=== PATIENT | female | born 1955 | race Caucasian/White ===

== ENCOUNTER 2021-03-15 09:25 | Observation (INO) | payer SELFPAY ==
[2021-03-15] VITALS (10 sets, daily range): BP systolic 171–231; BP diastolic 74–114; PULSE 65–98; RESP 16–19; TEMP 36.4–37.1; O2SAT 93–98; BMI 24.2
--- NOTE | 2021-03-15 09:54 | XR_ITS ---
WS: [id number] Portable AP upright chest, 03/15/2021 Clinical Data: altered mental status Comparison: None. Findings: No nodules, masses or effusions are seen. The heart is normal. The pulmonary vascularity is not increased. No pneumonia or pneumothorax is seen. Midline sternotomy sutures are present. Monitor leads on the chest wall. XR/XR chest 1V portable [id number] Impression: Atherosclerosis.
--- NOTE | 2021-03-15 09:54 | ECG_ITS ---
[facility] Test Date: 2021-03-15 Pat Name: Lucila Perea Department: Room: Gender: Female Check Inspector: : 1955 Requested By: Nawaf Nance Order Number: [id number] Alee MD: Brittany Bueno M.D. Measurements Intervals [place] Rate: 78 P: 72 MA: 137 QRS: 26 QRSD: 90 T: 70 QT: 397 QTc: 455 Interpretive Statements SINUS RHYTHM NONSPECIFIC ST & T-WAVE ABNORMALITY No previous ECG available for comparison Electronically Signed On 03-15-2021 16:03:27 PLATINUM AND PALLADIUM KETTLE TENDER by Brittany Bueno M.D. [email or web address]
--- NOTE | 2021-03-15 09:54 | CT_ITS ---
WS: [id number] CT HEAD TECHNIQUE: Noncontrast CT of the head obtained from the skullbase to the vertex. CLINICAL INFORMATION: Symptoms of Stroke COMPARISON: None. DLP: 788.[address] scans at [facility] use at least one of these dose optimization techniques: automated e xposure control; mA and/or kV adjustment per patient size (includes targeted exams where dose is matc hed to clinical indication); or iterative reconstruction. FINDINGS: No evidence of intracranial hemorrhage. Ventricular system and basal cisterns are patent. Mild small vessel changes with moderate parenchymal volume loss. No extra-axial fluid collections. Wedge-shaped area of low-attenuation change in the left parietal white matter extending to the cortex suspicious for subacute ischemia. Small amount of low-attenuation left periventricular frontal white matter likely chronic ischemia. Tiny chronic lacunar infarct left internal capsule. Paranasal sinuses and mastoid air cells are well aerated. .Normal visualized soft tissues. CT/CT head wo con* [id number] IMPRESSION: 1. No evidence of intracranial hemorrhage 2. Area of wedge-shaped low-attenuation change suspicious for subacute ischemi a in the left parietal lobe near the vertex. This can be followed up with MRI i f indicated. 3. Additional small area of low-attenuation change in the left frontal white m atter likely chronic. 4. Mild small vessel changes. Moderate parenchymal volume loss. Notified Nawaf Nance at 03/15/2021 11:23 AM.
--- NOTE | 2021-03-15 09:54 | CT_ITS ---
WS: [id number] CTA HEAD AND NECK TECHNIQUE: Contrast enhanced CTA of the head and neck with coronal and sagittal reformatted images an d maximum intensity projection (MIP) images. NASCET criteria utilized. CLINICAL INFORMATION: symptoms of stroke COMPARISON: None. DLP: 2324.[address] scans at [facility] use at least one of these dose optimization techniques: automated e xposure control; mA and/or kV adjustment per patient size (includes targeted exams where dose is matc hed to clinical indication); or iterative reconstruction. FINDINGS: RIGHT: Right common carotid artery is patent. Minimal calcified atheromatous plaque right carotid bul b. No significant right ICA stenosis. ICA is patent to the skull base. LEFT: Occlusion of the left common carotid artery just distal to the origin. Left common carotid lila ry is occluded to the carotid bulb. Carotid reconstitutes at the carotid bulb. Moderate atheromatous plaque left carotid bulb with stenosis measuring approximately 50%. Left ICA remains patent to the sk ull base. INTRACRANIAL CTA: Both ICAs are patent at the skull base. Normal vascularity to the CHET and MCA territories bilaterally . Right dominant vertebral artery. Smaller but patent left vertebral artery. Basilar artery is patent. Dominant anterior circulation. Persistent bilateral insurance verification specialist. Mild intracranial atheromatous disease. No evidence of flow-limiting intracranial stenosis. Suspected subacute ischemia left parietal white matter. Expected decreased intraparenchymal flow in t his area. CT/CT angio headneck* [id number] IMPRESSION: 1. Left common carotid artery is occluded just distal to the origin. This cedric nstitutes at the carotid bulb and left ICA remains patent to the skull base. 50 % left proximal ICA stenosis. 2. No significant right ICA stenosis. 3. Right dominant vertebral artery. Both vertebral arteries are patent. 4. Diminutive basilar artery with dominant anterior circulation. Persistent bi lateral insurance verification specialist. 5. No evidence of flow-limiting intracranial stenosis. 6. Low-attenuation change the left parietal white matter suspicious for subacu te ischemia as previously discussed. Notified Nawaf Nance at 03/15/2021 11:57 AM.
[2021-03-15] MEDS: labetalol 5 mg/mL SDV 20mL 10 MG IV (10:15)
[2021-03-15 10:19] LABS: Basophils # 0.1 10^3/uL (0.0-0.1); Basophils % 0.7 %; Eosinophils # 0.2 10^3/uL (0.0-0.8); Eosinophils % 2.6 %; Hematocrit 51.2 % (37.0-47.0); Hemoglobin 18.4 g/dL (11.5-15.3); Lymphocytes # 1.7 10^3/uL (0.8-4.8); Lymphocytes % 19.3 %; Mean Corpuscular HGB Conc 35.9 g/dL (30.0-36.0); Mean Corpuscular Hemoglobin 29.8 pg (28.0-34.0); Mean Platelet Volume 10.4 fL (7.4-10.4); Monocytes # 0.6 10^3/uL (0.2-0.9); Neutrophils # 6.18 10^3/uL (1.8-7.7); Neutrophils % 70.1 %; Nucleated Red Blood Cells % 0 %; Platelet Count 380 10^3/cmm (130-400); Red Blood Count 6.17 10^6/uL (4.1-5.3); Red Cell Distribution Width 12.2 % (12.1-15.1); White Blood Count 8.8 10^3/uL (4.0-10.0)
[2021-03-15 10:24] LABS: Urine Appearance Clear (CLEAR); Urine Color Straw (Yellow); pH Urine 5 (5-7)
[2021-03-15 10:25] LABS: Blood Urine Neg (Negative); Glucose Urine UA 4+ (Normal); Ketones Urine Negative (Negative); Nitrate Urine Negative (Negative); Protein Urine Neg (Negative)
[2021-03-15 10:26] LABS: Bilirubin Urine Neg (Negative); Leukocyte Esterase Urine Trace (Negative); Urobilinogen Urine Norm (Negative)
[2021-03-15 10:27] LABS: Add Urine Microscopic? YES
--- NOTE | 2021-03-15 10:30 | PC.PHAR ---
pt states she use to takes insulin and bp meds pt states she hasnt taken them in years and is unsure of the names of what she took pt states she doesnt remember the name of the pharmacy she use to fill at in [place]-pt states she has only been taking ibu-
[2021-03-15 10:41] LABS: Bacteria Urine 2+ /hpf; RBC Urine 0-4 /hpf (0-2); Squamous Epithelial Cell Urine 0-4 /hpf (0-5)
[2021-03-15 10:43] LABS: Add Urine Culture? Yes
[2021-03-15 10:49] LABS: Glucose Point of Care 356 mg/dL (70-110)
[2021-03-15 10:49] LABS: INR 0.92 (0.8-1.2)
[2021-03-15 10:50] LABS: Partial Thromboplastin Time 21.2 SECONDS (23.9-36.7)
--- NOTE | 2021-03-15 10:50 | W.ED.AMS ---
HPI - Altered Mental Status General: Chief Complaint: Altered Mental Status Stated Complaint: SOB,RECENT MEMORY LOSS,R LEG LAGGING Time Seen by Provider: 03/15/21 09:40 Source: patient, family and old records reviewed History of Present Illness: HPI narrative: 65-year-old female presents to emergency department with family chief complaint of altered mental status is been progressively worse over last 3 weeks which he is having some aphasia as well as right-sided weakness. Patient apparently has been off of her medications for multiple issues the last 5 years including high blood pressure. Family reported she they have attempted to get the patient to come in for several days in which finally they were allowed to bring her in the patient does have difficulty with word finding with there is concerns of underlying stroke MD complaint: altered mental status and confusion Timing confirmed by: family member Severity: moderate Associated symptoms: Deny depression Review of Systems General: Reports: 10 or more systems reviewed and unremarkable except in HPI and below Const: Denies: fever(s), chills, fatigue or malaise Eyes: Denies: change in vision or blurry vision Card: Denies: chest pain or palpitations Resp: Denies: dyspnea or productive cough GI: Denies: abdominal pain, nausea or vomiting : Denies: flank pain Musc: Denies: extremity pain or extremity swelling Skin/Breast: Denies: rash or pruritus Neuro: Reports: headache(s), sensory changes, lack of coordination, difficulty walking and frequent falls Psych: Denies: anxiety or depression Madi/Lymph: Denies: easy bleeding All/Imm: Denies: urticaria, throat swelling or facial swelling Physical Exam Narrative: EXAM NARRATIVE: Patient appears to have a focal neuro deficit suggestive of stroke especially on the right side of the body with an obvious Warnicke's aphasia present at present Const: COMMON NORMALS: no acute distress, healthy appearing and alert (Alert oriented x2) HENMT: COMMON NORMALS: normocephalic and atraumatic HEAD & SCALP: normocephalic and atraumatic Eye: COMMON NORMALS: Equal, round and reactive pupils present and EOMs intact bilaterally PUPIL: Yes Equal, round and reactive pupils present Neck/C-Spine: COMMON NORMALS: full ROM, supple and no JVD Lymph: LYMPHATIC: no lymphadenopathy noted Chest: COMMONS NORMALS: normal inspection of the chest and normal palpation of entire chest wall Resp: COMMON NORMALS: normal respiratory effort, No retractions and clear to auscultation bilaterally EFFORT & INSPECTION: Yes able to speak in complete sentences and Yes symmetric chest movement AUSCULTATION: clear to auscultation bilaterally Cardio: COMMON NORMALS: no JVD, regular rate and regular rhythm RATE: regular rate RHYTHM: regular rhythm GI: COMMON NORMALS: Normal to inspection, nondistended, normoactive bowel sounds present, Soft to palpation and non-tender INSPECTION: Yes normal to inspection PALPATION: Yes Soft to palpation : COMMON NORMALS: Yes no CVA tenderness BLADDER/KIDNEY EXAM: Yes no CVA tenderness Back/Pelvis: COMMON NORMALS: no CVA tenderness Extremity: COMMON NORMALS: normal to inspection and full ROM Neuro: RADHA COMA SCALE: other (Patient is obvious focal neuro deficits noted obvious right-sided weakness with ataxia present obvious Warnicke's aphasia noted) SENSORIUM/ORIENTATION: Yes alert (Alert oriented x2) Psych: COMMON NORMALS: mental status grossly normal, Normal thought process present, cooperative and normal affect THOUGHT PROCESS: Normal thought process present Skin: COMMON NORMALS: no rashes or lesions noted GENERAL SKIN EXAM: no rashes or lesions noted Course ED course: Underlying concern of stroke versus hypertensive cephalopathy due to patient's current deficits that are present we will continue to follow patient was provided with a dose of labetalol for her blood pressure control we will continue to follow if needs for admission or transfer Vital Signs: Vital signs: Vital Signs Temperature 98.3 F 03/15/21 09:33 Pulse Rate 65 03/15/21 10:51 Respiratory Rate 16 03/15/21 10:51 Blood Pressure 181/82 03/15/21 10:51 Pulse Oximetry 94 03/15/21 10:51 MDM - Altered Mental Status MDM Narrative: Medical decision making narrative: Patient was found to have a subacute stroke mostly noted at the parietal and frontal areas with no hematoma no to be large for radiology advised the patient family in regards to this which are agreeable she would like to be admitted overnight for further assessment and management spoke to Dr. Beyer that has agreed to accept the patient to medical surgical floor. Differential Diagnosis: Differential diagnosis altered mental status: Likely altered mental status and delirium Lab Data: Attestation: I reviewed the patient's lab results. Labs: Lab Results 03/15/21 03/15/21 03/15/21 09:47 09:47 10:10 WBC 8.8 10^3/uL 10^3/ uL (4.0-10.0) RBC 6.17 10^6/uL H 10 ^6/uL (4.1-5.3) Hgb 18.4 g/dL H g/dL (11.5-15.3) Hct 51.2 % H % (37.0-47.0) MCV 83.0 fl fl (81-99) MCH 29.8 pg pg (28.0-34.0) MCHC 35.9 g/dL g/dL (30.0-36.0) RDW 12.2 % % (12.1-15.1) Plt Count 380 10^3/cmm 10^3 /cmm (130-400) MPV 10.4 fL fL (7.4-10.4) Neut % (Auto) 70.1 % % Lymph % (Auto) 19.3 % % [place] % (Auto) 7.0 % % Eos % (Auto) 2.6 % % Baso % (Auto) 0.7 % % Neut # (Auto) 6.18 10^3/uL 10^3 /uL (1.8-7.7) Lymph # (Auto) 1.7 10^3/uL 10^3/ uL (0.8-4.8) [place] # (Auto) 0.6 10^3/uL 10^3/ uL (0.2-0.9) Eos # (Auto) 0.2 10^3/uL 10^3/ uL (0.0-0.8) Baso # (Auto) 0.1 10^3/uL 10^3/ uL (0.0-0.1) Nucleated RBC % (a uto) 0 % % Nucleated RBCs # 0.0 /100WBC /100W BC PT INR APTT Sodium Potassium Chloride Carbon Dioxide Anion Gap BUN Creatinine GFR Calculation Glucose POC Glucose Calculated Osmolal ity Calcium Total Bilirubin AST ALT Alkaline Phosphata se Total Protein Albumin Globulin Urine Color Straw (Yellow) Urine Appearance Clear (CLEAR) Urine pH 5 (5-7) Ur Specific Gravit y 1.000 L (1.005-1.030) Urine Protein Neg (Negative) Urine Glucose (UA) 4+ H (Normal) Urine Ketones Negative (Negative) Urine Blood Neg (Negative) Urine Nitrate Negative (Negative) Urine Bilirubin Neg (Negative) Urine Urobilinogen Norm mg/dL mg/dL (Negative) Ur Leukocyte Nona ase Trace H (Negative) Urine RBC 0-4 /hpf H /hpf (0-2) Urine WBC 10-15 /hpf H /hpf (0-5) Ur Squamous Epith Cells 0-4 /hpf H /hpf (0-5) Amorphous Sediment Not Reportable Urine Bacteria 2+ /hpf H /hpf (NONE) Urine Opiates Scre en Negative ng/mL ng /mL (Negative) Ur Barbiturates Sc reen Negative ng/mL ng /mL (Negative) Ur Phencyclidine S crn Negative ng/mL ng /mL (Negative) Ur Amphetamines Sc reen Negative ng/mL ng /mL (Negative) U Benzodiazepines Scrn Positive ng/mL H ng/mL (Negative) Urine Cocaine Scre en Negative ng/mL ng /mL (Negative) U Marijuana (THC) Screen Negative ng/mL ng /mL (Negative) Ethyl Alcohol 03/15/21 03/15/21 03/15/21 10:10 10:10 10:46 WBC RBC Hgb Hct MCV MCH MCHC RDW Plt Count MPV Neut % (Auto) Lymph % (Auto) [place] % (Auto) Eos % (Auto) Baso % (Auto) Neut # (Auto) Lymph # (Auto) [place] # (Auto) Eos # (Auto) Baso # (Auto) Nucleated RBC % (a uto) Nucleated RBCs # PT 12.70 SECONDS SEC ONDS (12.1-14.9) INR 0.92 (0.8-1.2) APTT 21.2 SECONDS L SE CONDS (23.9-36.7) Sodium 134 mmol/L L mmol /L (136-145) Potassium 4.4 mmol/L mmol/L (3.5-5.1) Chloride 97 mmol/L L mmol/ L (98-107) Carbon Dioxide 23 mmol/L mmol/L (22-29) Anion Gap 18.4 (5-19) BUN 9 mg/dL mg/dL (8-23) Creatinine 0.6 mg/dL mg/dL (0.5-0.9) GFR Calculation 101.0 mL/min mL/m in (90-130) Glucose 363 mg/dL H mg/dL (65-115) POC Glucose 356 mg/dL H mg/dL (70-110) Calculated Osmolal ity 291 mOsm/kg mOsm/ kg (285-295) Calcium 8.9 mg/dL mg/dL (8.5-10.5) Total Bilirubin 0.3 mg/dL mg/dL (0.15-1.2) AST 12 U/L U/L (0-32) ALT 15 U/L U/L (0-33) Alkaline Phosphata se 83 IU/L IU/L (35-105) Total Protein 7.4 g/dL g/dL (6.6-8.7) Albumin 4.5 g/dL g/dL (3.5-5.2) Globulin 2.9 g/dL g/dL (1.3-4.6) Urine Color Urine Appearance Urine pH Ur Specific Gravit y Urine Protein Urine Glucose (UA) Urine Ketones Urine Blood Urine Nitrate Urine Bilirubin Urine Urobilinogen Ur Leukocyte Nona ase Urine RBC Urine WBC Ur Squamous Epith Cells Amorphous Sediment Urine Bacteria Urine Opiates Scre en Ur Barbiturates Sc reen Ur Phencyclidine S crn Ur Amphetamines Sc reen U Benzodiazepines Scrn Urine Cocaine Scre en U Marijuana (THC) Screen Ethyl Alcohol < 10 mg/dL mg/dL (0-10) Discharge Plan Discharge Patient Disposition: Admitted As Inpatient Clinical Impression: Stroke Condition: Stable Coding Level of Care Code ED Saloonkeeper for Vignesh Fwgianni Exam Comprehensive
[2021-03-15 10:57] LABS: Alanine Aminotransferase 15 U/L (0-33); Albumin Level 4.5 g/dL (3.5-5.2); Alkaline Phosphatase 83 IU/L (35-105); Anion Gap 18.4 (5-19); Aspartate Amino Transferase 12 U/L (0-32); Blood Urea Nitrogen 9 mg/dL (8-23); Calcium 8.9 mg/dL (8.5-10.5); Carbon Dioxide 23 mmol/L (22-29); Chloride 97 mmol/L (98-107); Globulin 2.9 g/dL (1.3-4.6); Glucose 363 mg/dL (65-115); Osmolality Calculated 291 mOsm/kg (285-295); Potassium 4.4 mmol/L (3.5-5.1); Sodium 134 mmol/L (136-145); Total Bilirubin 0.3 mg/dL (0.15-1.2); Total Protein 7.4 g/dL (6.6-8.7)
[2021-03-15 11:00] LABS: Alcohol Level < 10 mg/dL (0-10)
[2021-03-15] MEDS: iohexol 350 mg/mL 100 mL Btl IV (11:12)
[2021-03-15 11:57] LABS: Amphetamines Screen Urine Negative (Negative); Barbiturates Screen Urine Negative (Negative); Benzodiazepines Screen Urine Positive (Negative); Cocaine Screen Urine Negative (Negative); Opiate Screen Urine Negative (Negative); PCP Screen Urine Negative (Negative); THC Screen Urine Negative (Negative)
--- NOTE | 2021-03-15 12:59 | W.ED.AMS ---
HPI - Altered Mental Status General: Chief Complaint: Altered Mental Status Stated Complaint: SOB,RECENT MEMORY LOSS,R LEG LAGGING Time Seen by Provider: 03/15/21 09:40 Source: patient, family and old records reviewed History of Present Illness: HPI narrative: This is a duplicate chart please disregard and delete Severity: moderate PFSH ED PFSH: Medical History (Updated 03/15/21 @ 14:25 by Javy Beyer MD) COPD (chronic obstructive pulmonary disease) Coronary artery disease Diabetes mellitus type 2 in nonobese Hypertension Tobacco dependency Surgical History (Updated 03/15/21 @ 14:16 by Javy Beyer MD) History of coronary artery bypass graft Family History (Updated 03/15/21 @ 14:16 by Javy Beyer MD) Other CAD (coronary artery disease) Diabetes Social History (Updated 03/15/21 @ 14:16 by Javy Beyer MD) Smoking and tobacco status: current every day smoker Alcohol intake: current Alcohol intake frequency: 0-2 Drinks per Day Course Vital Signs: Vital signs: Vital Signs Temperature 98.3 F 03/15/21 09:33 Pulse Rate 67 03/15/21 14:50 Respiratory Rate 16 03/15/21 14:50 Blood Pressure 179/85 03/15/21 15:30 Pulse Oximetry 98 03/15/21 15:00 MDM - Altered Mental Status Lab Data: Labs: Lab Results 03/15/21 03/15/21 03/15/21 09:47 09:47 10:10 WBC 8.8 10^3/uL 10^3/ uL (4.0-10.0) RBC 6.17 10^6/uL H 10 ^6/uL (4.1-5.3) Hgb 18.4 g/dL H g/dL (11.5-15.3) Hct 51.2 % H % (37.0-47.0) MCV 83.0 fl fl (81-99) MCH 29.8 pg pg (28.0-34.0) MCHC 35.9 g/dL g/dL (30.0-36.0) RDW 12.2 % % (12.1-15.1) Plt Count 380 10^3/cmm 10^3 /cmm (130-400) MPV 10.4 fL fL (7.4-10.4) Neut % (Auto) 70.1 % % Lymph % (Auto) 19.3 % % [place] % (Auto) 7.0 % % Eos % (Auto) 2.6 % % Baso % (Auto) 0.7 % % Neut # (Auto) 6.18 10^3/uL 10^3 /uL (1.8-7.7) Lymph # (Auto) 1.7 10^3/uL 10^3/ uL (0.8-4.8) [place] # (Auto) 0.6 10^3/uL 10^3/ uL (0.2-0.9) Eos # (Auto) 0.2 10^3/uL 10^3/ uL (0.0-0.8) Baso # (Auto) 0.1 10^3/uL 10^3/ uL (0.0-0.1) Nucleated RBC % (a uto) 0 % % Nucleated RBCs # 0.0 /100WBC /100W BC PT INR APTT Sodium Potassium Chloride Carbon Dioxide Anion Gap BUN Creatinine GFR Calculation Glucose POC Glucose Estimat Average Gl ucose Hemoglobin A1c Calculated Osmolal ity Calcium Total Bilirubin AST ALT Alkaline Phosphata se Total Protein Albumin Globulin TSH Urine Color Straw (Yellow) Urine Appearance Clear (CLEAR) Urine pH 5 (5-7) Ur Specific Gravit y 1.000 L (1.005-1.030) Urine Protein Neg (Negative) Urine Glucose (UA) 4+ H (Normal) Urine Ketones Negative (Negative) Urine Blood Neg (Negative) Urine Nitrate Negative (Negative) Urine Bilirubin Neg (Negative) Urine Urobilinogen Norm mg/dL mg/dL (Negative) Ur Leukocyte Nona ase Trace H (Negative) Urine RBC 0-4 /hpf H /hpf (0-2) Urine WBC 10-15 /hpf H /hpf (0-5) Ur Squamous Epith Cells 0-4 /hpf H /hpf (0-5) Amorphous Sediment Not Reportable Urine Bacteria 2+ /hpf H /hpf (NONE) Urine Opiates Scre en Negative ng/mL ng /mL (Negative) Ur Barbiturates Sc reen Negative ng/mL ng /mL (Negative) Ur Phencyclidine S crn Negative ng/mL ng /mL (Negative) Ur Amphetamines Sc reen Negative ng/mL ng /mL (Negative) U Benzodiazepines Scrn Positive ng/mL H ng/mL (Negative) Urine Cocaine Scre en Negative ng/mL ng /mL (Negative) U Marijuana (THC) Screen Negative ng/mL ng /mL (Negative) Ethyl Alcohol 03/15/21 03/15/21 03/15/21 10:10 10:10 10:10 WBC RBC Hgb Hct MCV MCH MCHC RDW Plt Count MPV Neut % (Auto) Lymph % (Auto) [place] % (Auto) Eos % (Auto) Baso % (Auto) Neut # (Auto) Lymph # (Auto) [place] # (Auto) Eos # (Auto) Baso # (Auto) Nucleated RBC % (a uto) Nucleated RBCs # PT 12.70 SECONDS SEC ONDS (12.1-14.9) INR 0.92 (0.8-1.2) APTT 21.2 SECONDS L SE CONDS (23.9-36.7) Sodium 134 mmol/L L mmol /L (136-145) Potassium 4.4 mmol/L mmol/L (3.5-5.1) Chloride 97 mmol/L L mmol/ L (98-107) Carbon Dioxide 23 mmol/L mmol/L (22-29) Anion Gap 18.4 (5-19) BUN 9 mg/dL mg/dL (8-23) Creatinine 0.6 mg/dL mg/dL (0.5-0.9) GFR Calculation 101.0 mL/min mL/m in (90-130) Glucose 363 mg/dL H mg/dL (65-115) POC Glucose Estimat Average Gl ucose Hemoglobin A1c Calculated Osmolal ity 291 mOsm/kg mOsm/ kg (285-295) Calcium 8.9 mg/dL mg/dL (8.5-10.5) Total Bilirubin 0.3 mg/dL mg/dL (0.15-1.2) AST 12 U/L U/L (0-32) ALT 15 U/L U/L (0-33) Alkaline Phosphata se 83 IU/L IU/L (35-105) Total Protein 7.4 g/dL g/dL (6.6-8.7) Albumin 4.5 g/dL g/dL (3.5-5.2) Globulin 2.9 g/dL g/dL (1.3-4.6) TSH 1.07 uIU/mL uIU/m L (0.27-4.20) Urine Color Urine Appearance Urine pH Ur Specific Gravit y Urine Protein Urine Glucose (UA) Urine Ketones Urine Blood Urine Nitrate Urine Bilirubin Urine Urobilinogen Ur Leukocyte Nona ase Urine RBC Urine WBC Ur Squamous Epith Cells Amorphous Sediment Urine Bacteria Urine Opiates Scre en Ur Barbiturates Sc reen Ur Phencyclidine S crn Ur Amphetamines Sc reen U Benzodiazepines Scrn Urine Cocaine Scre en U Marijuana (THC) Screen Ethyl Alcohol < 10 mg/dL mg/dL (0-10) 03/15/21 03/15/21 10:10 10:46 WBC RBC Hgb Hct MCV MCH MCHC RDW Plt Count MPV Neut % (Auto) Lymph % (Auto) [place] % (Auto) Eos % (Auto) Baso % (Auto) Neut # (Auto) Lymph # (Auto) [place] # (Auto) Eos # (Auto) Baso # (Auto) Nucleated RBC % (a uto) Nucleated RBCs # PT INR APTT Sodium Potassium Chloride Carbon Dioxide Anion Gap BUN Creatinine GFR Calculation Glucose POC Glucose 356 mg/dL H mg/dL (70-110) Estimat Average Gl ucose 286 Hemoglobin A1c 11.6 % H % (4.0-6.0) Calculated Osmolal ity Calcium Total Bilirubin AST ALT Alkaline Phosphata se Total Protein Albumin Globulin TSH Urine Color Urine Appearance Urine pH Ur Specific Gravit y Urine Protein Urine Glucose (UA) Urine Ketones Urine Blood Urine Nitrate Urine Bilirubin Urine Urobilinogen Ur Leukocyte Nona ase Urine RBC Urine WBC Ur Squamous Epith Cells Amorphous Sediment Urine Bacteria Urine Opiates Scre en Ur Barbiturates Sc reen Ur Phencyclidine S crn Ur Amphetamines Sc reen U Benzodiazepines Scrn Urine Cocaine Scre en U Marijuana (THC) Screen Ethyl Alcohol Discharge Plan Discharge Patient Disposition: Admitted As Inpatient Admit Provider: Javy Beyer Clinical Impression: Stroke Condition: Stable Coding Level of Care Code ED Plastic Battery Assembler for Vignesh Toussaint
--- NOTE | 2021-03-15 14:10 | PM.HP ---
Providers/Chief Complaint Chief Complaint: SOB,RECENT MEMORY LOSS,R LEG LAGGING History of Present Illness Lucila Perea is a 65 year old female who presents to the emergency department with difficulty walking. She reports she has had difficulty for at least 2 weeks with her right leg working. Sister who she lives with is noted speech difficulty with word finding difficulty. She may have some difficulty seeing out of her left eye, has had decreased appetite, and has had a left-sided headache. Symptoms had not improved, so she has now come to the emergency department although she is not happy about being here. She denies any vomiting. She has a history of coronary disease, hypertension, diabetes for which she stopped all her medicine over 5 years ago. She reports she could not afford it. Review of Systems General: Reports: 10 or more systems reviewed and unremarkable except in HPI and below Const: Denies: fever(s) or chills Eyes: Reports: other (Decreased vision left eye) ENMT: Denies: throat pain Card: Denies: chest pain Resp: Denies: dyspnea GI: Denies: abdominal pain, nausea, vomiting or hematochezia : Denies: flank pain Musc: Denies: neck pain Skin/Breast: Denies: rash Neuro: Reports: headache(s) Psych: Denies: anxiety or depression Endo: Denies: polyuria Madi/Lymph: Denies: easy bruising All/Imm: Denies: urticaria Medications/Allergies Home Medications Medication Instructions Recorded Confirmed Last Taken Type ibuprofen [Advil] 800 mg PO Q4H PRN 03/15/21 03/15/21 Unknown History Allergies Allergy/AdvReac Type Severity Reaction Status Date / Time No Known Allergies Allergy Verified 03/15/21 10:29 PFSH Acute PFSH: Medical History (Updated 03/15/21 @ 14:25 by Javy Beyer MD) COPD (chronic obstructive pulmonary disease) Coronary artery disease Diabetes mellitus type 2 in nonobese Hypertension Tobacco dependency Surgical History (Updated 03/15/21 @ 14:16 by Javy Beyer MD) History of coronary artery bypass graft Family History (Updated 03/15/21 @ 14:16 by Javy Beyer MD) Other CAD (coronary artery disease) Diabetes Social History (Updated 03/15/21 @ 14:16 by Javy Beyer MD) Smoking and tobacco status: current every day smoker Alcohol intake: current Alcohol intake frequency: 0-2 Drinks per Day Vitals/I&O/Wt Last Vital Signs Temp 98.3 F 03/15/21 09:33 Pulse 65 03/15/21 10:51 Resp 16 03/15/21 10:51 BP 181/82 03/15/21 10:51 Pulse Ox 94 03/15/21 10:51 Weight last 48 hrs Weight 68.039 kg Physical Exam Narrative: EXAM NARRATIVE: General exam is a white female, complaining of left-sided headache, in no obvious distress HEENT: Pupils equally round. Oropharynx clear. Neck is supple no lymphadenopathy or megaly Cardiovascular regular rate and rhythm without murmur, no S3 or S4 Lungs a few expiratory wheezes. No crackles Abdomen is soft with positive bowel sounds. No obvious organomegaly exam is deferred Extremities no cyanosis clubbing or edema, cap refill brisk. Skin no rash Neuro: Some diminished vision left eye. Right-sided partial neglect is noted. Strength 3+/5+ and difficulty with dorsiflexion right foot is noted. Good strength in her right upper extremity with some neglect. No obvious facial droop. Some difficulty with word finding ability. Data : 03/15/21 10:10 03/15/21 10:10 Other data: EKG demonstrates normal sinus rhythm, normal axis, nonspecific ST-T wave changes CTA demonstrates a left carotid occlusion CT head demonstrates questionable chronic left frontal ischemic area and subacute left parietal CVA INR 0.92 LFTs, calcium normal Urinalysis 10-15 white blood cells Urine drug screen positive for benzodiazepines A&P Assessment and plan (1) Stroke: Appears to have a subacute stroke. Likely secondary to carotid occlusion. Initiate physical therapy, Occupational Therapy and speech therapy Initiate aspirin, 324 mg now. Continue aspirin daily and add Plavix 75 mg daily Add statin Lipid profile in the morning Check echocardiogram Observation currently. If she does well with physical therapy potential discharge tomorrow. Telemetry to monitor for any arrhythmia/atrial fibrillation Status: Acute (2) Headache: Likely secondary to CVA Status: Acute (3) Hypertension: Typically would allow permissive hypertension. In this instance as this appears to be a subacute CVA will initiate blood pressure medication tomorrow with goal of systolic around 160. Hydralazine if systolic greater than 180 four tonight. Status: Acute (4) UTI (urinary tract infection): Cefdinir Urine culture Status: Acute (5) Left carotid artery occlusion: Noted on CTA. Discussed with family no surgical intervention is appropriate at this time. Status: Acute (6) Coronary artery disease: Initiate aspirin, statin Consideration of addition of beta-charli with time Await echocardiogram Status: Acute (7) COPD (chronic obstructive pulmonary disease): DuoNeb as needed. No current evidence of exacerbation Status: Acute (8) Tobacco dependency: Encourage abstinence Status: Acute (9) Diabetes mellitus type 2 in nonobese: Sliding scale insulin Consider Metformin as an outpatient May need long-acting insulin Status: Acute Additional A&P Information Reports alcohol intake of around two drinks per day. Monitor for withdrawal. Thiamine. Allow natural . Lovenox for DVT prophylaxis. Pepcid for GI prophylaxis Attestations Medical Necessity Statement*: Less than two midnight stay for evaluation and treatment of subacute CVA Time Spent in Patient Care: Greater than 35 minutes Coding Level of Care Code Acute Logistics Engineer for [facility] Fwd Diagnoses Stroke I63.9 Headache R51.9 Hypertension I10 UTI (urinary tract infection) N39.0 Left carotid artery occlusion I65.22 Coronary artery disease I25.10 COPD (chronic obstructive pulmonary disease) J44.9 Tobacco dependency F17.200 Diabetes mellitus type 2 in nonobese E11.9
--- NOTE | 2021-03-15 14:20 | USCV_ITS ---
Lucila Perea Age: 65 Gender: F : 1955 Exam Date: 03/15/2021 14:58 Ordering Phys: Javy Beyer MD Technologist: ARJUN Exam Location: [facility] [place] Indication: CVA BP: 167 / 69 HR: 74 Rhythm: Sinus Technical Quality: Technically difficult study MEASUREMENTS (Male / Female) Normal Values 2D ECHO LV Diastolic Diameter PLAX 3.7 cm 4.2 - 5.9 / 3.9 - 5.3 cm LV Systolic Diameter PLAX 2.7 cm IVS Diastolic Thickness 1.1 cm 0.6 - 1.0 / 0.6 - 0.9 cm IVS Systolic Thickness 1.3 cm LVPW Diastolic Thickness 1.2 cm 0.6 - 1.0 / 0.6 - 0.9 cm LVPW Systolic Thickness 2.0 cm LVOT Diameter 2.0 cm LV Ejection Fraction 2D Teich 54.0 % LV Ejection Fraction MOD 2C 57.1 % LV Ejection Fraction 2C AL 56.8 % LA Diameter 2.7 cm LA Width 3.5 cm LA Height 3.9 cm RA Width 3.2 cm RA Height 4.3 cm Aorta at Sinotubular Diameter 2.1 cm M-MODE Aortic Annulus Diameter 2.3 cm LA Ao Ratio MM 1.4 MV E Point Septal Separation 0.4 cm DOPPLER AV Peak Velocity 120.0 cm/s LVOT Peak Velocity 98.0 cm/s AV Area Cont Eq vti 2.6 cm squared AV Area Cont Eq pk 2.6 cm squared MV Area PHT 5.0 cm squared Mitral E to A Ratio 0.9 MV E' Velocity 46.5 cm/s Mitral E to MV E' Ratio 12.6 Mitral E to LV E' Lateral Ratio 13.0 Mitral E to LV E' Septal Ratio 12.4 TR Peak Velocity 254.0 cm/s TR Peak Gradient 25.8 mmHg TV Peak E Velocity 50.0 cm/s Right Atrial Pressure 3.0 mmHg Pulmonary Artery Systolic Pressu 28.8 mmHg PV Peak Velocity 119.0 cm/s RV Acceleration Time 0.1 s RV Ejection Time 0.3 s RV AcT/ET 0.3 FINDINGS Left Ventricle Technically limited quality study because of poor ultrasonic windows. Normal left ventricular size. LV systolic function is normal with EF of 60-65%. No regional wall motion abnormalities. Right Ventricle Grossly normal in size Right Atrium The right atrium is normal in size. Left Atrium The left atrium is normal in size. Mitral Valve Grossly normal without significant stenosis or prolapse. There is mild mitral regurgitation. Aortic Valve Not well visualzied. No significant stenosis. There is no aortic regurgitation. Tricuspid Valve Not well-visualized Pulmonic Valve Not well-visualized Pericardium Normal pericardium without effusion. Aorta Normal ascending aorta dimension. CONCLUSIONS Limited quality echocardiogram because of poor ultrasonic windows. LV systolic function is normal with EF of 60 to 65%. Mild mitral regurgitation is seen. No comparison studies are available. Kumar Mack MD (Electronically Signed) Final Date: 15 March 2021 16:46 S
[2021-03-15 14:49] LABS: Thyroid Stimulating Hormone 1.07 uIU/mL (0.27-4.20)
[2021-03-15] MEDS: perflutren protein-a microsphr 0.22 mg/mL SDV 3 mL IV (15:37)
[2021-03-15 15:41] LABS: Estmated Average Glucose 286; Hemoglobin A1C 11.6 % (4.0-6.0)
[2021-03-15] MEDS: aspirin 81 mg Chew Tablet 324 MG PO (15:50)
--- NOTE | 2021-03-15 16:02 | PC.NURSE ---
attempted report charge nurse to call back
--- NOTE | 2021-03-15 16:18 | PC.NURSE ---
attempted report again, was told report cant be given yet.
[2021-03-15] MEDS: enoxaparin 40 mg/0.4 mL Syringe SUBCUT (18:13)
[2021-03-15] MEDS: cefdinir 300 MG CAPSULE PO (18:13)
[2021-03-15] MEDS: sodium chloride 0.9% 1,000 ML 75 ML IV (18:13)
[2021-03-15] MEDS: famotidine 20 mg Tablet PO (18:13)
[2021-03-15 18:35] LABS: Glucose Point of Care 418 mg/dL (70-110)
[2021-03-15] MEDS: insulin lispro 100 unit/1 mL SUBCUT ×2 (18:42→21:28)
[2021-03-15] MEDS: acetaminophen 325 mg Tablet 650 MG PO (20:03)
[2021-03-15] MEDS: atorvastatin 40 mg Tablet PO (20:03)
[2021-03-15 20:30] LABS: Glucose Point of Care 220 mg/dL (70-110)
[2021-03-16] VITALS: BP 136/79; PULSE 69; RESP 19; TEMP 36.8; O2SAT 95
[2021-03-16 04:00] VITALS: BP 159/94; PULSE 80; RESP 20; TEMP 36.7; O2SAT 97
[2021-03-16 05:52] LABS: Basophils # 0.1 10^3/uL (0.0-0.1); Basophils % 0.8 %; Eosinophils # 0.3 10^3/uL (0.0-0.8); Eosinophils % 3.9 %; Hematocrit 46.2 % (37.0-47.0); Hemoglobin 16.5 g/dL (11.5-15.3); Lymphocytes # 1.7 10^3/uL (0.8-4.8); Lymphocytes % 21.8 %; Mean Corpuscular HGB Conc 35.7 g/dL (30.0-36.0); Mean Corpuscular Hemoglobin 30.2 pg (28.0-34.0); Mean Corpuscular Volume 84.6 fl (81-99); Mean Platelet Volume 10.6 fL (7.4-10.4); Monocytes # 0.6 10^3/uL (0.2-0.9); Monocytes % 8.1 %; Neutrophils # 4.94 10^3/uL (1.8-7.7); Nucleated Red Blood Cells % 0 %; Platelet Count 341 10^3/cmm (130-400); Red Blood Count 5.46 10^6/uL (4.1-5.3); Red Cell Distribution Width 12.3 % (12.1-15.1); White Blood Count 7.6 10^3/uL (4.0-10.0)
[2021-03-16 06:19] LABS: Anion Gap 17.8 (5-19); Blood Urea Nitrogen 12 mg/dL (8-23); Calcium 8.5 mg/dL (8.5-10.5); Carbon Dioxide 20 mmol/L (22-29); Chloride 100 mmol/L (98-107); Glucose 214 mg/dL (65-115); Osmolality Calculated 284 mOsm/kg (285-295); Potassium 3.8 mmol/L (3.5-5.1); Sodium 134 mmol/L (136-145)
[2021-03-16 06:27] LABS: Chol HDL Ratio 6.73 mg/dL (0.0-4.40); Cholesterol 276 mg/dL (0-200); HDL Cholesterol 41 mg/dL (60-100); LDL Cholesterol Calculated 199 mg/dL (50-129); LDL HDL Ratio 4.85 RATIO (0.00-3.22); Triglycerides 182 mg/dL (0-150)
[2021-03-16 06:39] LABS: Glucose Point of Care 230 mg/dL (70-110)
[2021-03-16 07:22] VITALS: BP 174/76; PULSE 82; RESP 16; TEMP 36.9; O2SAT 95
[2021-03-16 08:32] VITALS: PULSE 75; RESP 18; O2SAT 97
--- NOTE | 2021-03-16 09:36 | PC.OT ---
OT EVALUATION ORDERS RECEIVED. PATIENT IS ABLE TO VISUALLY TRACK IN ALL PLANES. DEMONSTRATES WFL AROM OF B UE AND 4/5 B UE MX STRENGTH. IS ABLE TO OPPOSE ALL FINGERS BUT IS SLOWER WITH EYES CLOSED. REPORTS NO DIFFICULTY FEEDING SELF THIS MORNING. DECLINES ADLS AT THIS TIME SHE IS HOPING TO DISCHARGE TODAY. HANDOUT GIVEN TO [employer]OR SKILL[employer]; PATIENT VERBALIZED UNDERSTANDING. NO FURTHER SKILLED OT REQUIRED AT THIS TIME.
[2021-03-16 11:05] LABS: Glucose Point of Care 386 mg/dL (70-110)
[2021-03-16 11:15] VITALS: BP 176/90; PULSE 89; RESP 16; TEMP 36.9; O2SAT 98
--- NOTE | 2021-03-16 11:49 | PM.DCS ---
Discharge Providers Date of Admission: 03/15/21 13:00 Date of Discharge: March 16, 2021 Attending Provider at Admission: Javy Beyer MD Attending Provider at Discharge: Afua Salmeron MD Diagnoses at Discharge Discharge Diagnosis (1) Stroke: Status: Acute (2) Headache: Status: Acute (3) Hypertension: Status: Acute (4) UTI (urinary tract infection): Status: Acute (5) Left carotid artery occlusion: Status: Acute (6) Coronary artery disease: Status: Acute (7) COPD (chronic obstructive pulmonary disease): Status: Acute (8) Tobacco dependency: Status: Acute (9) Diabetes mellitus type 2 in nonobese: Status: Acute Reason for Visit Reason for Visit: SOB,RECENT MEMORY LOSS,R LEG LAGGING Hospital Course Hospital Course History of Present Illness by Dr. Beyer Lucila Perea is a 65 year old female who presents to the emergency department with difficulty walking. She reports she has had difficulty for at least 2 weeks with her right leg working. Sister who she lives with is noted speech difficulty with word finding difficulty. She may have some difficulty seeing out of her left eye, has had decreased appetite, and has had a left-sided headache. Symptoms had not improved, so she has now come to the emergency department although she is not happy about being here. She denies any vomiting. She has a history of coronary disease, hypertension, diabetes for which she stopped all her medicine over 5 years ago. She reports she could not afford it. Hospital course Patient symptoms resolved, she is not struggling with word finding difficulty, did write for physical therapy, remained in sinus rhythm, LDL 199, echo shows preserved ejection fraction, CTA head and neck 50% left proximal ICA stenosis head CT consistent with low-attenuation change left parietal subacute ischemic changes. Patient will be discharged home with aspirin and Plavix 21-day regimen along atorvastatin and for her hypertension she will get metoprolol and lisinopril, patient was counseled on smoking cessation, following up with PCP.She will be discharged home with event monitor for 21 days. Sister at the bedside at the time of discharge, all the recommendations were explained and understood, all questions were answered to the satisfaction. Meds to beds arranged. Patient to discuss carotid ultrasound annual screening with her PCP, no acute intervention indicated at this time for 50% stenosis. Optimization of medication at this point and risk factor modification for her ischemic atherosclerotic CV event. Physical Exam Narrative: EXAM NARRATIVE: Patient sitting in a chair Nonfocal neuro exam No word finding difficulty Right-sided partial neglect No facial droop EOMI, PERRLA S1, S2 no murmur No audible stridor or wheezing Abdomen is soft No rash Discharge Data Data Completed and Pending: Completed Studies During Hospitalization Category Date Time Status CT angio headneck * [id number] Stat Cat Scan 03/15/21 09:[address] head wo con* [id number] Stat Cat Scan 03/15/21 09:54 Completed XR chest 1V noé ble [id number] Stat Exams 03/15/21 09:54 Completed CV. echo wo/w con trast [id number] Routin e Ultrasound 03/15/21 14:20 Completed Pending at discharge Category Date Time Status Urine Culture Sta t Lab 03/15/21 09:47 Results Labs from last 24 hours 03/16/21 03/16/21 03/16/21 10:53 06:34 04:44 WBC RBC Hgb Hct MCV MCH MCHC RDW Plt Count MPV Neut % (Auto) Lymph % (Auto) Coryell % (Auto) Eos % (Auto) Baso % (Auto) Neut # (Auto) Lymph # (Auto) Coryell # (Auto) Eos # (Auto) Baso # (Auto) Nucleated RBC % (a uto) Nucleated RBCs # Sodium Potassium Chloride Carbon Dioxide Anion Gap BUN Creatinine GFR Calculation Glucose POC Glucose 386 H 230 H Estimat Average Gl ucose Hemoglobin A1c Calculated Osmolal ity Calcium Triglycerides 182 H Cholesterol 276 H LDL Cholesterol, C alc 199 H HDL Cholesterol 41 L LDL/HDL Ratio 4.85 H Cholesterol/HDL Ra ivania 6.73 H TSH Urine Opiates Scre en Ur Barbiturates Sc reen Ur Phencyclidine S crn Ur Amphetamines Sc reen U Benzodiazepines Scrn Urine Cocaine Scre en U Marijuana (THC) Screen 03/16/21 03/16/21 03/15/21 04:44 04:44 20:27 WBC 7.6 RBC 5.46 H Hgb 16.5 H Hct 46.2 MCV 84.6 MCH 30.2 MCHC 35.7 RDW 12.3 Plt Count 341 MPV 10.6 H Neut % (Auto) 65.0 Lymph % (Auto) 21.8 Coryell % (Auto) 8.1 Eos % (Auto) 3.9 Baso % (Auto) 0.8 Neut # (Auto) 4.94 Lymph # (Auto) 1.7 Coryell # (Auto) 0.6 Eos # (Auto) 0.3 Baso # (Auto) 0.1 Nucleated RBC % (a uto) 0 Nucleated RBCs # 0.0 Sodium 134 L Potassium 3.8 Chloride 100 Carbon Dioxide 20 L Anion Gap 17.8 BUN 12 Creatinine 0.6 GFR Calculation 101.0 Glucose 214 H POC Glucose 220 H Estimat Average Gl ucose Hemoglobin A1c Calculated Osmolal ity 284 L Calcium 8.5 Triglycerides Cholesterol LDL Cholesterol, C alc HDL Cholesterol LDL/HDL Ratio Cholesterol/HDL Ra ivania TSH Urine Opiates Scre en Ur Barbiturates Sc reen Ur Phencyclidine S crn Ur Amphetamines Sc reen U Benzodiazepines Scrn Urine Cocaine Scre en U Marijuana (THC) Screen 03/15/21 03/15/21 03/15/21 18:32 10:10 10:10 WBC RBC Hgb Hct MCV MCH MCHC RDW Plt Count MPV Neut % (Auto) Lymph % (Auto) Coryell % (Auto) Eos % (Auto) Baso % (Auto) Neut # (Auto) Lymph # (Auto) Coryell # (Auto) Eos # (Auto) Baso # (Auto) Nucleated RBC % (a uto) Nucleated RBCs # Sodium Potassium Chloride Carbon Dioxide Anion Gap BUN Creatinine GFR Calculation Glucose POC Glucose 418 H Estimat Average Gl ucose 286 Hemoglobin A1c 11.6 H Calculated Osmolal ity Calcium Triglycerides Cholesterol LDL Cholesterol, C alc HDL Cholesterol LDL/HDL Ratio Cholesterol/HDL Ra ivania TSH 1.07 Urine Opiates Scre en Ur Barbiturates Sc reen Ur Phencyclidine S crn Ur Amphetamines Sc reen U Benzodiazepines Scrn Urine Cocaine Scre en U Marijuana (THC) Screen 03/15/21 09:47 WBC RBC Hgb Hct MCV MCH MCHC RDW Plt Count MPV Neut % (Auto) Lymph % (Auto) Coryell % (Auto) Eos % (Auto) Baso % (Auto) Neut # (Auto) Lymph # (Auto) Coryell # (Auto) Eos # (Auto) Baso # (Auto) Nucleated RBC % (a uto) Nucleated RBCs # Sodium Potassium Chloride Carbon Dioxide Anion Gap BUN Creatinine GFR Calculation Glucose POC Glucose Estimat Average Gl ucose Hemoglobin A1c Calculated Osmolal ity Calcium Triglycerides Cholesterol LDL Cholesterol, C alc HDL Cholesterol LDL/HDL Ratio Cholesterol/HDL Ra ivania TSH Urine Opiates Scre en Negative Ur Barbiturates Sc reen Negative Ur Phencyclidine S crn Negative Ur Amphetamines Sc reen Negative U Benzodiazepines Scrn Positive H Urine Cocaine Scre en Negative U Marijuana (THC) Screen Negative Vitals: Last Vital Signs Temp 98.5 F 03/16/21 11:15 Pulse 89 03/16/21 11:15 Resp 16 03/16/21 11:15 BP 176/90 03/16/21 11:15 Pulse Ox 98 03/16/21 11:15 Discharge Plan Discharge Patient Disposition: Home Condition: Stable Prescriptions: New atorvastatin 40 mg Tablet 40 mg PO BEDTIME Qty: 60 RF: 3 clopidogrel 75 mg Tablet 75 mg PO DAILY Qty: 21 RF: 0 famotidine 20 mg Tablet 20 mg PO BID Qty: 30 RF: 0 aspirin 325 mg Tablet,Delayed Release (Dr/Ec) 325 mg PO DAILY Qty: 60 RF: 3 cefdinir 300 mg Capsule 300 mg PO BID Qty: 7 RF: 0 lisinopril 10 mg tablet 10 mg PO DAILY Qty: 60 RF: 3 metoprolol tartrate 25 mg tablet 12.5 mg PO BID Qty: 60 RF: 3 Discontinued ibuprofen [Advil] 200 mg Tablet 800 mg PO Q4H PRN (Reason: Pain) RF: 0 Discharge Orders: Discharge Order (Routine); Ordered 03/16/21 Ordered By: Afua Salmeron Other Ambulatory Orders: [place] cardiac event monitor (Routine) Timeframe: 21 Days Facility: [facility] - Location: Cardiac Diagnostic Laboratory Ordered By: Afua Salmeron Referrals: Eros Man DO [Physician] - 7-10 days (New Patient appointment) Brittany Bueno MD [Physician] - 03/21/21 2:30 pm (Please go to the cardiology clinic on 03/21/21 at 2:30pm to have an event monitor placed. ) Discharge Diet: Cardiac Discharge Activity: Increase activity as tolerated Patient Instructions: Metoprolol (By mouth) (Lopressor, Toprol XL), Lisinopril (By mouth) (Prinivil, Zestril), Famotidine (By mouth) (Acid Controller, Acid Donor Services Team Leader, Pepcid AC, Pepcid), Aspirin (By mouth) (Darin Extra Strength, Darin Aspirin Children's,..., Atorvastatin (By mouth) (Lipitor), Clopidogrel (By mouth) (Plavix), Cefdinir (By mouth) (Omnicef), Coronary Artery Disease (DC), Opioid Safety Activity Restrictions/Additional Instructions: Aspirin and Plavix for 21 days and then you will take aspirin only with rest of the medications For your blood pressure you'll take lisinopril and Metroprolol tartrate, Please establish a PCP Quit smoking, cold turkey is the best route Maintain a blood pressure diary to show to your pcp Discharge Attestations Time Spent in Discharge Care*: less than 30 min Quality Metrics Clinical Quality Measures During this hospital stay, did patient experience: Stroke Contraindication to Antithrombotic: Antithrombotic prescribed Contraindication to Anticoagulation: Medical contraindication Contraindication to Statin: Statin prescribed Contraindication to antithrombotic day 2: Antithrombotic given Coding Level of Care Code Acute Chg FW DC note Diagnoses Stroke I63.9 Headache R51.9 Hypertension I10 UTI (urinary tract infection) N39.0 Left carotid artery occlusion I65.22 Coronary artery disease I25.10 COPD (chronic obstructive pulmonary disease) J44.9 Tobacco dependency F17.200 Diabetes mellitus type 2 in nonobese E11.9
[2021-03-16] MEDS: aspirin 325 mg EC Tablet PO (12:48)
[2021-03-16] MEDS: thiamine 100 mg Tablet PO (12:48)
[2021-03-16] MEDS: cefdinir 300 MG CAPSULE PO (12:48)
[2021-03-16] MEDS: clopidogrel 75 mg Tablet PO (12:48)
[2021-03-16] MEDS: famotidine 20 mg Tablet PO (12:48)
[2021-03-16] MEDS: insulin lispro 100 unit/1 mL SUBCUT (12:53)
--- NOTE | 2021-03-16 14:00 | PC.NURSE ---
PT HAS DONE WELL FOR ME TODAY. PT DOES NOT HAVE ANY COMPLAINTS OF PAIN. SHE DID WELL WITH PHYSICAL THERAPY THIS MORNING. SHE IS AMBULATING WELL. DISCHARGE PAPERWORK GONE OVER WITH PT. ALL QUESTIONS ANSWERED. MEDICATIONS WERE BROUGHT UP TO PT. IV REMOVED. PT TOELRATED WELL. CATHETER TIP INTACT. PT SAFELY WHEELED OUT BY THE AID.
[2021-03-16 14:02] VITALS: BP 176/90; PULSE 89; RESP 16; TEMP 36.9; O2SAT 98
--- NOTE | 2021-03-20 13:43 | PC.SOCIAL ---
pt doesn't currently have insurance. pt doesn't wish to follow up with cardiology, establish pcp or have heart monitor placed until she has coverage. pt has financial assistance paperwork and is filling it out.
== END 2021-03-16 14:02 | disposition home or self-care (01) ==
LOC: ER 12:00 → MEDSURG 03-16 07:28
PROVIDERS: Admitting Provider Internal Medicine; Emergency Provider Emergency Medicine; Visit Provider Internal Medicine
DX: I63.9 Cerebral infarction, unspecified (principal); R51.9 Headache, unspecified; I10 Essential (primary) hypertension; N39.0 Urinary tract infection, site not specified; I65.22 Occlusion and stenosis of left carotid artery; I25.10 Atherosclerotic heart disease of native coronary artery without angina pectoris; J44.9 Chronic obstructive pulmonary disease, unspecified; F17.200 Nicotine dependence, unspecified, uncomplicated; E11.9 Type 2 diabetes mellitus without complications; Z79.82 Long term (current) use of aspirin
CPT/HCPCS: 36415; 36416; 70450; 70496; 70498; 71045; 80048; 80053; 80061; 80306; 80307; 81001; 82962; 83036; 84443; 85025; 85610; 85730; 87077; 87086; 87186; 92523; 92610; 93005; 96361; 96372; 96374; 97110; 97161; 99285; C8929; G0378; J1650; J1815; J3490; J7030; Q9956; Q9967

== ENCOUNTER 2021-04-25 09:44 | Inpatient (IN) | payer MEDICAID, SELFPAY ==
[2021-04-25] VITALS (19 sets, daily range): BP systolic 170–244; BP diastolic 82–144; PULSE 78–108; RESP 15–31; TEMP 36.2–37.3; O2SAT 65–97; BMI 28.2
--- NOTE | 2021-04-25 | CT_ITS ---
WS: [id number] CT HEAD TECHNIQUE: Noncontrast CT of the head obtained from the skullbase to the vertex. CLINICAL INFORMATION: LEFT SIDED WEAKNESS / SLURRED SPEECH / STROKE ALERT COMPARISON: March 15, 2021 DLP: [address] scans at [facility] use at least one of these dose optimization techniques: automated e xposure control; mA and/or kV adjustment per patient size (includes targeted exams where dose is matc hed to clinical indication); or iterative reconstruction. FINDINGS: No evidence of intracranial hemorrhage or mass effect. Ventricular system and basal cisterns are rodríguez nt. Mild small vessel changes with moderate parenchymal volume loss. Tiny chronic lacunar infarct lef t internal capsule. Chronic appearing lacunar infarct left thalamus. No extra-axial fluid collections . No evidence of mass or mass effect. Normal mcdaniels-white differentiation. Paranasal sinuses and mastoid air cells are well aerated. .Normal visualized soft tissues. CT/CT head wo con* [id number] IMPRESSION: 1. No evidence of intracranial hemorrhage or mass effect. 2. Chronic infarct in the left parietal lobe with encephalomalacia is unchange d from previous. 3. Chronic appearing low-attenuation change in the left frontal lobe is unchan ged from previous. 4. Small 9 x 6 mm wedge-shaped low-attenuation left parasagittal occipital lo be appears new or progressed compared to previous suspicious for small area of subacute ischemia. This can be further evaluated with MRI. 5. No other significant findings. Notified Armani Ross DO at 04/25/2021 10:01 AM.
--- NOTE | 2021-04-25 10:02 | CT_ITS ---
WS: [id number] CTA HEAD AND NECK TECHNIQUE: Contrast enhanced CTA of the head and neck with coronal and sagittal reformatted images an d maximum intensity projection (MIP) images. NASCET criteria utilized. CLINICAL INFORMATION: acute CVA COMPARISON: CTA April 25, 2021 DLP: 2627.[address] scans at [facility] use at least one of these dose optimization techniques: automated e xposure control; mA and/or kV adjustment per patient size (includes targeted exams where dose is matc hed to clinical indication); or iterative reconstruction. FINDINGS: RIGHT: Right common carotid origin is patent. New eccentric stenosis with irregular ulcerated plaque with suspected focal dissection involving the right common carotid artery in the lower neck. This is new from March 15, 2021. Stenosis measuring approximately 65%. No occlusion. Right common carotid artery remains patent to the bifurcation. No significant right ICA stenosis. Right ICA is patent to t he skull base. LEFT: Left common carotid artery is occluded just distal to the origin unchanged since the prior examinatio n. Left common carotid artery remains occluded to the bifurcation. ICA reconstitutes just distal to t he bifurcation with stenosis measuring approximately 50%. Left ICA remains patent to the skull base. INTRACRANIAL CTA: Both ICAs are patent at the skull base. Normal vascularity to the CHET and MCA territories bilaterally . No evidence of intracranial flow-limiting stenosis. Tiny patent anterior communicating artery. Right dominant vertebral artery. Both vertebral arteries are patent. Left vertebral artery partially dense and PICA. Diminutive but patent basilar artery with dominant anterior circulation. Normal vascu larity to the APARTMENT COMMUNITY ASSISTANT MANAGER territory bilaterally. Persistent left APARTMENT COMMUNITY ASSISTANT MANAGER. Slightly decreased cortical flow in the area of suspected subacute parasagittal occipital infarct. Chronic decreased flow in the area of more chronic appearing left parietal infarct. This can be followed up with MRI. Paranasal sinuses and mastoid air cells are well aerated. Lung apices are well aerated. Sternotomy. CT/CT angio headneck* [id number] IMPRESSION: 1. New progressed stenosis in the right common carotid artery in the lower nec k with eccentric ulcerated irregular plaque and suspected short segment dissect ion with stenosis measuring 65%. Right common carotid artery is patent to the b ifurcation. Right ICA is patent to the skull base. 2. Left common carotid artery is occluded just distal to the origin unchanged from previous. 50% left ICA stenosis is unchanged. 3. Right dominant vertebral artery. Both vertebral arteries are patent. 4. No flow-limiting intracranial stenosis. Persistent left APARTMENT COMMUNITY ASSISTANT MANAGER. 5. Slightly decreased cortical flow to the area of suspected subacute ischemia in the left parasagittal occipital lobe. This can be followed up with MRI. 6. Stable more chronic appearing infarct in the left parietal lobe. Attempted notification Armani Ross DO at 04/25/2021 11:11 AM.
--- NOTE | 2021-04-25 10:06 | W.ED.NEUROSD ---
HPI - Neuro Symptoms/Deficit General: Chief Complaint: Neuro Symptoms/Deficit Stated Complaint: STROKE ALERT Time Seen by Provider: 04/25/21 09:55 History of Present Illness: HPI Narrative: 65-year-old female presents via EMS 1 hour 15 minutes after sudden onset of left-sided weakness dysarthria and aphasia. Patient has a known history of previous CVA and was hospitalized in early March with a CVA. She is not on any anticoagulants evidently she was on clopidogrel but is already stopped she is taking aspirin and atorvastatin. There are no other oral anticoagulants. Onset (ago): hour(s) Time: 09:55 Last Observed Normal: 08:40 Timing confirmed by: family member Location: speech, left face, left arm and left leg Severity: mild Quality: weak Relieving factors: none Exacerbating factors: none Context: sudden onset On Anticoagulants: No Associated symptoms: Reports weakness; Deny chest pain, cough, diaphoresis, fevers/chills, headache(s), anorexia, malaise, nausea, seizures, short of breath, syncope, tingling, vertigo or vomiting Treatments Prior to Arrival: none Review of Systems Const: Denies: malaise or diaphoresis ENMT: Denies: throat pain, ear or mastoid pain, nasal discharge or nasal congestion Card: Denies: chest pain or syncope Resp: Denies: dyspnea, productive cough or non-productive cough GI: Denies: nausea or vomiting : Denies: flank pain, difficulty voiding, dysuria, urinary frequency or urinary urgency Skin/Breast: Denies: rash or pruritus Neuro: Denies: headache(s) or vertigo PFS ED PFSH: Medical History (Updated 04/28/21 @ 17:09 by Armani Ross DO) COPD (chronic obstructive pulmonary disease) Coronary artery disease Diabetes mellitus type 2 in nonobese Headache Hypertension Tobacco dependency Surgical History History of coronary artery bypass graft Family History Other CAD (coronary artery disease) Diabetes Social History Smoking and tobacco status: current every day smoker Alcohol intake: current Alcohol intake frequency: 0-2 Drinks per Day NIH stroke score NIHSS: Level Of Consciousness - 1a: 1 Level Of Consciousness Questions - 1b: Both Correct Level Of Consciousness Commands - 1c: Both Correct Best Gaze - 2: Partial Gaze Palsy Visual Hernandez - 3: No Visual Loss Facial Palsy - 4: Partial Paralysis Motor Arm Right - 5: Effort Against [place] Motor Arm Left - 5: No Drift Motor Leg Right - 6: No Drift Motor Leg Left - 6: Effort Against [place] Limb Ataxia - 7: Present In Two Limbs Sensory - 8: Normal Best Language - 9: No Aphasia Dysarthia - 10: Mild/Moderate Dysarthia Extinction And Inattention - 11: 1 Score: Total Score: 12 Physical Exam Const: GENERAL APPEARANCE: cooperative and comfortable ORIENTATION/CONSCIOUSNESS: Yes awake HENMT: COMMON NORMALS: normocephalic, atraumatic, hearing grossly normal bilaterally, external ears normal, EAC's normal, TM's normal bilaterally, Normal nasal mucous membranes and turbinates present, moist oral mucous membranes and oropharynx normal HEAD & SCALP: normocephalic and atraumatic NOSE: Normal nasal mucous membranes and turbinates present EXTERNAL EAR: Yes external ears normal EXTERNAL AUDITORY CANAL: EAC's normal TYMPANIC MEMBRANE: TM's normal bilaterally Eye: COMMON NORMALS: Equal, round and reactive pupils present, EOMs intact bilaterally, conjunctivae normal and no scleral icterus CONJUNCTIVA: Yes conjunctivae normal PUPIL: Yes Equal, round and reactive pupils present Neck/C-Spine: COMMON NORMALS: full ROM, no lymphadenopathy, supple and no JVD Resp: COMMON NORMALS: normal respiratory effort, No retractions, No use of accessory muscles and clear to auscultation bilaterally AUSCULTATION: clear to auscultation bilaterally Cardio: COMMON NORMALS: no JVD, regular rate, regular rhythm and No murmurs present (Cardio) RATE: regular rate RHYTHM: regular rhythm GI: COMMON NORMALS: Soft to palpation and No hepatosplenomegaly present AUSCULTATION: Yes normoactive bowel sounds PALPATION: Yes Soft to palpation, No Tenderness to palpation present (GI), No Guarding due to palpation present (GI) and Yes No hepatosplenomegaly present Extremity: COMMON NORMALS: normal to inspection, capillary refill normal, no clubbing, cyanosis or edema, no calf tenderness and no pedal edema Skin: COMMON NORMALS: no rashes or lesions noted GENERAL SKIN EXAM: no rashes or lesions noted Course Vital Signs: Vital signs: Vital Signs Temperature 98.5 F 04/28/21 15:14 Pulse Rate 73 04/28/21 15:14 Respiratory Rate 17 04/28/21 15:14 Blood Pressure 138/50 04/28/21 15:14 Pulse Oximetry 96 04/28/21 15:14 MDM - Neuro Symptoms/Deficit MDM Narrative: Medical decision making narrative: Stroke alert initially reviewed with Dr. Hanna. Patient had a stroke last month with Dr. Hanna did not feel she was a candidate for any kind of tPA intervention CTA did not show any embolism. We will go ahead and admit discussed Dr. Beyer orders written Lab Data: Labs: Lab Results 04/25/21 04/25/21 04/25/21 10:13 10:13 10:13 WBC 10.8 10^3/uL H 10 ^3/uL (4.0-10.0) RBC 6.11 10^6/uL H 10 ^6/uL (4.1-5.3) Hgb 18.1 g/dL H g/dL (11.5-15.3) Hct 50.4 % H % (37.0-47.0) MCV 82.5 fl fl (81-99) MCH 29.6 pg pg (28.0-34.0) MCHC 35.9 g/dL g/dL (30.0-36.0) RDW 12.3 % % (12.1-15.1) Plt Count 454 10^3/cmm H 10 ^3/cmm (130-400) MPV 10.8 fL H fL (7.4-10.4) Neut % (Auto) 65.6 % % Lymph % (Auto) 24.8 % % Major % (Auto) 6.8 % % Eos % (Auto) 1.9 % % Baso % (Auto) 0.6 % % Neut # (Auto) 7.08 10^3/uL 10^3 /uL (1.8-7.7) Lymph # (Auto) 2.7 10^3/uL 10^3/ uL (0.8-4.8) Major # (Auto) 0.7 10^3/uL 10^3/ uL (0.2-0.9) Eos # (Auto) 0.2 10^3/uL 10^3/ uL (0.0-0.8) Baso # (Auto) 0.1 10^3/uL 10^3/ uL (0.0-0.1) Nucleated RBC % (a uto) 0 % % Nucleated RBCs # 0.0 /100WBC /100W BC PT 12.90 SECONDS SEC ONDS (12.1-14.9) INR 0.95 (0.8-1.2) APTT 19.9 SECONDS L SE CONDS (23.9-36.7) Sodium 134 mmol/L L mmol /L (136-145) Potassium 3.9 mmol/L mmol/L (3.5-5.1) Chloride 96 mmol/L L mmol/ L (98-107) Carbon Dioxide 21 mmol/L L mmol/ L (22-29) Anion Gap 20.9 H (5-19) BUN 10 mg/dL mg/dL (8-23) Creatinine 0.7 mg/dL mg/dL (0.5-0.9) GFR Calculation 84.5 mL/min L mL/ min (90-130) Glucose 288 mg/dL H mg/dL (65-115) Calculated Osmolal ity 288 mOsm/kg mOsm/ kg (285-295) Calcium 8.8 mg/dL mg/dL (8.5-10.5) Total Bilirubin 0.6 mg/dL mg/dL (0.15-1.2) AST 13 U/L U/L (0-32) ALT 16 U/L U/L (0-33) Alkaline Phosphata se 95 IU/L IU/L (35-105) Troponin T Baselin e Total Protein 7.3 g/dL g/dL (6.6-8.7) Albumin 4.6 g/dL g/dL (3.5-5.2) Globulin 2.7 g/dL g/dL (1.3-4.6) 04/25/21 10:13 WBC RBC Hgb Hct MCV MCH MCHC RDW Plt Count MPV Neut % (Auto) Lymph % (Auto) Major % (Auto) Eos % (Auto) Baso % (Auto) Neut # (Auto) Lymph # (Auto) Major # (Auto) Eos # (Auto) Baso # (Auto) Nucleated RBC % (a uto) Nucleated RBCs # PT INR APTT Sodium Potassium Chloride Carbon Dioxide Anion Gap BUN Creatinine GFR Calculation Glucose Calculated Osmolal ity Calcium Total Bilirubin AST ALT Alkaline Phosphata se Troponin T Baselin e 16 ng/L H ng/L (0-10) Total Protein Albumin Globulin Discharge Plan Discharge Patient Disposition: Admitted As Inpatient Admit Provider: Javy Beyer Clinical Impression: Cerebrovascular accident, Diabetes mellitus type 2 in nonobese, Left carotid artery occlusion, Hypertension Condition: Stable Coding Level of Care Code ED Technical Instructor Course Developer for [facility]
[2021-04-25] MEDS: HYDROmorphone 1 mg/mL INJ 1 mL 0.4 MG IVP (10:20)
[2021-04-25] MEDS: ondansetron 2 mg/ML SDV 2 mL 4 MG IVP (10:21)
--- NOTE | 2021-04-25 10:25 | PM.SAN ---
Stroke Alert Activation ED Arrival Date: 04/25/21 ED Arrival Time: 09:57 Last Known Normal/at Baseline: 1-2 hours ago Other Last Known Well Infomation: This is a very complex patient. I was called stat for stroke alert for this 65-year-old woman who had new onset of symptoms within the last hour. The stroke alert was called by her sister in [facility] came to the house to find her with a dense left hemiplegia. Stroke team was pretty activated from EMS and I came to the emergency department and arrived just as the patient had left CAT scan. I saw her in the emergency room and performed NIH stroke scale which is below. Dr. Ross and I worked together and he had time to review the patient's chart and find out that she had a stroke a month ago and her CAT scan from today shows a large lucency in the left parietal. In between her last CAT scan and today she is also developed a left posterior cerebral artery stroke that is small. Her symptoms today may indicate either multifocal involvement or brainstem, as she has left gaze preference with left hemiplegia. Her last CTA from 03/15/2021 shows left common carotid occluded just distal to the origin, reconstituting at the carotid bulb and left internal carotid artery with 50% proximal left internal carotid artery stenosis. Both vertebral arteries were patent at that time but the basilar artery was noted to be diminutive. The patient smokes. She has frequent TIAs according to her sister and refuses hospitalization. She has not been seen since she was in the hospital here a month ago. Because she had a large stroke a month ago she is not a candidate for tPA. There would be a chance that she would be a candidate for embolectomy because she has a high NIH stroke scale score. Stroke Alert Activated by: EMS Stroke Alert Activation Time: :34 Stroke MD @ Bedside Time: :34 NIH Stroke Scale Time: 09:50 NIH stroke score NIHSS: Level Of Consciousness - 1a: 1 Level Of Consciousness Questions - 1b: Both Correct Level Of Consciousness Commands - 1c: Both Correct Best Gaze - 2: Partial Gaze Palsy Visual Hernandez - 3: No Visual Loss Facial Palsy - 4: Partial Paralysis Motor Arm Right - 5: No Drift Motor Arm Left - 5: Effort Against [place] Motor Leg Right - 6: Drift Motor Leg Left - 6: Effort Against [place] Limb Ataxia - 7: Absent Sensory - 8: Normal Best Language - 9: No Aphasia Dysarthia - 10: Mild/Moderate Dysarthia Extinction And Inattention - 11: 1 (She feels to recognize her right hand) Score: Total Score: 11 Stroke Alert Data/Treatment Time to CT of Head: 09:57 CT Results Time: 10:00 CT Impression: 1. No evidence of intracranial hemorrhage or mass effect. 2. Chronic infarct in the left parietal lobe with encephalomalacia is unchanged from previous. 3. Chronic appearing low-attenuation change in the left frontal lobe is unchanged from previous. 4. Small 9 x 6 mm wedge-shaped low-attenuation left parasagittal occipital lobe appears new or progressed compared to previous suspicious for small area of subacute ischemia. This can be further evaluated with MRI. 5. No other significant findings. Notified Armani Ross DO at 04/25/2021 10:01 AM. Dictated By:Roberto Goldsmith MDSigned By:Roberto Goldsmith MDSigned Date/Time: Stroke Risk Factors: hypertension and obesity tPA Contraindication: tPA Contraindication: Medical contraindication tPA Admin Prior to Arrival: No Patient & Family Educated on: Risk Factors, Treament Plan and tPA Risks/Benefits Other Information: Plan repeat CT angiogram. Discussed with Dr. Ross. Critical Care Time Critical Care Time: 30 - 74 mins A&P Assessment and plan (1) Stroke: Acute stroke with left hemiplegia and left gaze preference and variable eye movements during exam, suggesting that this may be brainstem. She has a history of a diminutive basilar artery. She had previous left carotid occlusion and now presents with a new stroke suggesting that the origin of her stroke may be cardiac. Repeat CTA. I doubt that she is going to be a candidate for any type of procedure but because she is young we should give her every opportunity and will do so. Status: Acute (2) Left carotid artery occlusion: Status: Acute Coding Level of Care Code Acute Manager Case Management for [facility] Diagnoses Stroke I63.9 Left carotid artery occlusion I65.22
--- NOTE | 2021-04-25 10:48 | ECG_ITS ---
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 Measurements Intervals [place] Rate: 104 P: 72 ID: [id number] QRS: 59 QRSD: 82 T: 54 QT: 350 QTc: 461 Interpretive Statements SINUS TACHYCARDIA POSSIBLE LEFT ATRIAL ENLARGEMENT [-0.1mV P-WAVE IN V1/V2] SEPTAL MYOCARDIAL INFARCTION , OF INDETERMINATE AGE [40+ ms Q WAVE IN V1/V2] ST DEPRESSION, CONSIDER SUBENDOCARDIAL INJURY [0.1+ mV ST DEPRESSION] Compared to ECG 03/15/2021 10:25:44 Myocardial infarct finding now present ST (T wave) deviation now present Sinus rhythm no longer present T-wave abnormality no longer present Electronically Signed On 04-25-2021 19:57:43 JEWEL BEARING GRINDER by Aida Sy M.D. [id number]
[2021-04-25 11:26] LABS: Basophils # 0.1 10^3/uL (0.0-0.1); Basophils % 0.6 %; Eosinophils # 0.2 10^3/uL (0.0-0.8); Eosinophils % 1.9 %; Hematocrit 50.4 % (37.0-47.0); Hemoglobin 18.1 g/dL (11.5-15.3); Lymphocytes # 2.7 10^3/uL (0.8-4.8); Lymphocytes % 24.8 %; Mean Corpuscular HGB Conc 35.9 g/dL (30.0-36.0); Mean Corpuscular Hemoglobin 29.6 pg (28.0-34.0); Mean Corpuscular Volume 82.5 fl (81-99); Mean Platelet Volume 10.8 fL (7.4-10.4); Monocytes # 0.7 10^3/uL (0.2-0.9); Monocytes % 6.8 %; Neutrophils # 7.08 10^3/uL (1.8-7.7); Neutrophils % 65.6 %; Nucleated Red Blood Cells % 0 %; Platelet Count 454 10^3/cmm (130-400); Red Blood Count 6.11 10^6/uL (4.1-5.3); Red Cell Distribution Width 12.3 % (12.1-15.1); White Blood Count 10.8 10^3/uL (4.0-10.0)
[2021-04-25 11:30] LABS: INR 0.95 (0.8-1.2); Partial Thromboplastin Time 19.9 SECONDS (23.9-36.7)
[2021-04-25 11:40] LABS: Alanine Aminotransferase 16 U/L (0-33); Albumin Level 4.6 g/dL (3.5-5.2); Alkaline Phosphatase 95 IU/L (35-105); Anion Gap 20.9 (5-19); Aspartate Amino Transferase 13 U/L (0-32); Blood Urea Nitrogen 10 mg/dL (8-23); Calcium 8.8 mg/dL (8.5-10.5); Carbon Dioxide 21 mmol/L (22-29); Chloride 96 mmol/L (98-107); Globulin 2.7 g/dL (1.3-4.6); Glomerular Filtration Rate 84.5 mL/min (90-130); Glucose 288 mg/dL (65-115); Osmolality Calculated 288 mOsm/kg (285-295); Potassium 3.9 mmol/L (3.5-5.1); Sodium 134 mmol/L (136-145); Total Bilirubin 0.6 mg/dL (0.15-1.2); Total Protein 7.3 g/dL (6.6-8.7)
--- NOTE | 2021-04-25 12:39 | P.HP_ITS ---
Providers/Chief Complaint Chief Complaint: STROKE ALERT History of Present Illness Lucila Perea is a 65 year old female who presented to the hospital with complaints of abrupt onset of left-sided weakness, inability to move leg or arm associated with headache, vomiting, and slurred speech. Patient's sister is present with her, and reports symptoms started around 830 this morning. Prior to that she was at her baseline. She had had a recent admission to the hospital on March 15, with a subacute stroke causing some left-sided weakness. Symptoms were relatively minimal at discharge from what I understand. She was able to walk with a walker, and still do ADLs. She was given aspirin, Plavix, and Lipitor. Sister reports that she did not follow-up, medication ran out, and she is not for sure if she has been taking anything other than perhaps an aspirin daily. Patient herself has difficulty giving any history secondary to her CVA. She is able to nod her head some, and slowly say yes or no but responses are not completely reliable. Sister reports she has not been ill lately. She has not been vaccinated. She has not been exposed to anybody with COVID. She continues to smoke. Review of Systems General: Reports: 10 or more systems reviewed and unremarkable except in HPI and below (Per sister) Const: Denies: fever(s) or chills Eyes: Denies: change in vision ENMT: Denies: throat pain Card: Denies: chest pain Resp: Denies: dyspnea GI: Reports: nausea and vomiting; Denies: abdominal pain : Denies: flank pain Musc: Denies: neck pain Skin/Breast: Denies: rash Neuro: Reports: headache(s) Psych: Denies: anxiety Endo: Denies: polyuria Madi/Lymph: Denies: easy bruising All/Imm: Denies: urticaria Medications/Allergies Home Medications Medication Instructions Recorded Confirmed Last Taken Type aspirin 325 mg PO DAILY #60 tab 03/16/21 04/25/21 Unknown Rx atorvastatin 40 mg PO BEDTIME #60 tab 03/16/21 04/25/21 Unknown Rx clopidogrel 75 mg PO DAILY #21 tab 03/16/21 04/25/21 Unknown Rx famotidine 20 mg PO BID #30 tab 03/16/21 04/25/21 Unknown Rx lisinopril 10 mg PO DAILY #60 tab 03/16/21 04/25/21 Unknown Rx metoprolol tartrate 12.5 mg PO BID #60 tab 03/16/21 04/25/21 Unknown Rx Allergies Allergy/AdvReac Type Severity Reaction Status Date / Time No Known Allergies Allergy Verified 03/15/21 10:29 PFSH Acute PFSH: Medical History (Updated 04/25/21 @ 12:51 by Javy Beyer MD) COPD (chronic obstructive pulmonary disease) Coronary artery disease Diabetes mellitus type 2 in nonobese Headache Hypertension Tobacco dependency Surgical History History of coronary artery bypass graft Family History Other CAD (coronary artery disease) Diabetes Social History Smoking and tobacco status: current every day smoker Alcohol intake: current Alcohol intake frequency: 0-2 Drinks per Day Vitals/I&O/Wt Last Vital Signs Temp 97.2 F L 04/25/21 09:57 Pulse 107 H 04/25/21 12:10 Resp 19 H 04/25/21 12:10 BP 183/101 04/25/21 12:10 Pulse Ox 94 04/25/21 12:10 Weight last 48 hrs Weight 79.379 kg Physical Exam Narrative: EXAM NARRATIVE: General exam is a white female, difficult to communicate, with significantly slurred speech. HEENT: Atraumatic normocephalic. It is difficult to tell if she may have a visual field defect. Oropharynx clear. Neck is supple no lymphadenopathy or thyromegaly Cardiovascular regular rate and rhythm, borderline tachycardic, no murmur Lungs clear but with diminished breath sounds bilaterally Abdomen is soft with positive bowel sounds. No obvious organomegaly exam was deferred Extremities no cyanosis clubbing or edema, cap refill brisk Skin no rash Neuro dense left hemiparesis, left facial droop, slurred speech Data : 04/25/21 10:13 04/25/21 10:13 Other data: INR 0.95 Previous hemoglobin A1c markedly elevated at 11.19 March 2021 Previous LDL 199 March 16, 2021 Recent TSH normal LFTs normal Head neck CTA demonstrates progressive stenosis right common carotid with an irregular plaque and possible short dissection with stenosis at 65%. Left common carotid occluded just distal to the origin Left DIAMOND ASSORTER Slightly decreased flow with suspected subacute ischemia left parasagittal occipital lobe Stable chronic appearing infarct left parietal lobe CT noncontrast similar findings Echocardiogram March 15, 2021 demonstrated reserved EF mild mitral regurg itation EKG is ordered A&P Assessment and plan (1) Stroke: Initiate aspirin, Plavix, statin. Patient has been noncompliant with follow-up and continuing these medications. PT/OT/ST Neurology saw as a stroke alert in the emergency department. Please see their note No reason to repeat echocardiogram, lipid profile. Likely her reported headache is associated with CVA Permissive hypertension Consider BUDDY. Brought this subject up with sister. She is going to consider this again, depending upon the patient's improvement over the next 24 hours. May have significant issues with swallowing. We will have speech therapy dictate when diet can be started. Telemetry Status: Acute (2) Left carotid artery occlusion: No intervention is warranted Status: Acute (3) Diabetes mellitus type 2 in nonobese: Sliding scale insulin Will need consistent carb diet when this is initiated Status: Acute (4) Hypertension: Permissive hypertension currently Status: Acute Additional A&P Information Tobacco dependency. Encourage abstinence. History of COPD. DuoNeb as needed Allow natural . Discussed with family Lovenox for DVT prophylaxis. Currently she has significant deficit, and may require nursing facility placement for rehabilitation. Attestations Medical Necessity Statement*: Will need greater than 2 midnight stay for evaluation and treatment of CVA Time Spent in Patient Care: Greater than 35 minutes Coding Level of Care Code Acute Program Manufacturing Leader for [facility] Fwd Diagnoses Stroke I63.9 Left carotid artery occlusion I65.22 Diabetes mellitus type 2 in nonobese E11.9 Hypertension I10
[2021-04-25 13:16] LABS: Add Urine Microscopic? NO; Charge for UA Resulting for Rev
[2021-04-25 13:20] LABS: Bilirubin Urine Neg (Negative); Blood Urine Neg (Negative); Glucose Urine UA 4+ (Normal); Ketones Urine Negative (Negative); Leukocyte Esterase Urine Negative (Negative); Nitrate Urine Negative (Negative); Protein Urine Neg (Negative); Urine Appearance Clear (CLEAR); Urine Color Yellow (Yellow); Urobilinogen Urine Norm (Negative); pH Urine 5 (5-7)
[2021-04-25] MEDS: HYDROmorphone 1 mg/mL INJ 1 mL 0.5 MG IVP (13:26)
[2021-04-25 13:28] LABS: Amphetamines Screen Urine Negative (Negative); Barbiturates Screen Urine Negative (Negative); Benzodiazepines Screen Urine Positive (Negative); Cocaine Screen Urine Negative (Negative); Opiate Screen Urine Negative (Negative); PCP Screen Urine Negative (Negative); THC Screen Urine Negative (Negative)
[2021-04-25 13:41] LABS: Troponin(5th) Baseline 16 ng/L (0-10)
--- NOTE | 2021-04-25 14:30 | PC.NURSE ---
BED MON PLACED UNDER PATIENT. PATIENT VOIDED. BED LINENS CHANGED, PATIENT PLACED ON NEW CHUCKS.
--- NOTE | 2021-04-25 17:13 | ECG_ITS ---
[facility] Test Date: 2021-04-25 Pat Name: Lucila Perea Department: Room: 252 Gender: Female Blind Stitch Machine Operator: : 1955 Requested By: Javy Ca Order Number: [id number] Alee MD: Aida Sy M.D. Measurements Intervals [place] Rate: 94 P: 66 ME: 133 QRS: 40 QRSD: 83 T: 33 QT: 342 QTc: 429 Interpretive Statements SINUS RHYTHM NONSPECIFIC ST & T-WAVE ABNORMALITY Compared to ECG 04/25/2021 13:00:27 T-wave abnormality now present Sinus tachycardia no longer present Myocardial infarct finding no longer present ST (T wave) deviation no longer present Electronically Signed On 04-25-2021 20:13:18 WATCH ENGINEER by Aida Sy M.D. [id number]
[2021-04-25 18:42] LABS: Troponin T (5th) Once 25 ng/L (0-10)
--- NOTE | 2021-04-25 19:03 | ECG_ITS ---
[facility] Test Date: 2021-04-25 Pat Name: Lucila Perea Department: Room: 252 Gender: Female Energy Administrator: : 1955 Requested By: Javy Ca Order Number: [id number] Alee MD: Aida Sy M.D. Measurements Intervals [place] Rate: 92 P: 69 WV: 134 QRS: 35 QRSD: 84 T: 38 QT: 361 QTc: 448 Interpretive Statements SINUS RHYTHM SEPTAL MYOCARDIAL INFARCTION , PROBABLY OLD [40+ ms Q WAVE IN V1/V2] Compared to ECG 04/25/2021 17:19:50 Myocardial infarct finding now present T-wave abnormality no longer present Electronically Signed On 04-25-2021 20:13:29 POLE FRAME CONSTRUCTION WORKER by Aida Sy M.D. [id number]
[2021-04-25] MEDS: enoxaparin 40 mg/0.4 mL Syringe SUBCUT (19:17)
[2021-04-25] MEDS: famotidine 20 mg/2 mL INJ IVP (19:19)
[2021-04-26] VITALS (8 sets, daily range): BP systolic 169–190; BP diastolic 79–104; PULSE 88–106; RESP 18–24; TEMP 36.7–36.9; O2SAT 93–97
[2021-04-26] MEDS: morphine 4 mg/mL SDV 1 mL 2 MG IVP (03:34)
[2021-04-26] MEDS: famotidine 20 mg/2 mL INJ IVP ×2 (05:12→18:09)
[2021-04-26 06:20] LABS: Basophils # 0.1 10^3/uL (0.0-0.1); Basophils % 0.5 %; Eosinophils % 0.3 %; Hematocrit 46.1 % (37.0-47.0); Hemoglobin 16.3 g/dL (11.5-15.3); Lymphocytes # 1.4 10^3/uL (0.8-4.8); Lymphocytes % 11.8 %; Mean Corpuscular HGB Conc 35.4 g/dL (30.0-36.0); Mean Corpuscular Hemoglobin 29.3 pg (28.0-34.0); Mean Corpuscular Volume 82.9 fl (81-99); Mean Platelet Volume 10.6 fL (7.4-10.4); Monocytes # 0.7 10^3/uL (0.2-0.9); Monocytes % 5.9 %; Neutrophils # 9.73 10^3/uL (1.8-7.7); Neutrophils % 81.2 %; Nucleated Red Blood Cells % 0 %; Platelet Count 332 10^3/cmm (130-400); Red Blood Count 5.56 10^6/uL (4.1-5.3); Red Cell Distribution Width 12.3 % (12.1-15.1)
[2021-04-26 06:42] LABS: Estmated Average Glucose 249; Hemoglobin A1C 10.3 % (4.0-6.0)
[2021-04-26 07:31] LABS: Blood Urea Nitrogen 12 mg/dL (8-23); Calcium 8.6 mg/dL (8.5-10.5); Carbon Dioxide 15 mmol/L (22-29); Chloride 100 mmol/L (98-107); Glucose 199 mg/dL (65-115); Osmolality Calculated 289 mOsm/kg (285-295); Sodium 137 mmol/L (136-145)
[2021-04-26 07:36] LABS: Anion Gap 25.9 (5-19); Potassium 3.9 mmol/L (3.5-5.1)
--- NOTE | 2021-04-26 09:51 | PM.PN ---
Documented by User: TORIE Lopez STDNT 04/26/21 09:55 Subjective Subjective: Interval history: Lucila still experiences a headache today but her speech is much less slurred than yesterday. Vitals/I&O/Wt Last Vital Signs Temp 98.1 F 04/26/21 07:15 Pulse 106 H 04/26/21 08:35 Resp 20 H 04/26/21 08:35 BP 175/100 04/26/21 07:15 Pulse Ox 93 04/26/21 08:35 04/25/21 04/26/21 04/26/21 22:59 06:59 14:59 Output Total 200 / 200 150 / 350 Balance -200 / -200 -150 / -350 Weight last 48 hrs Weight 79.379 kg Weight 79.379 kg Data : 04/26/21 05:12 04/26/21 05:12 Coding Level of Care Code Acute Roller Shop Utility Worker for [facility] Fwd Diagnoses Stroke I63.9 Left carotid artery occlusion I65.22 Diabetes mellitus type 2 in nonobese E11.9 Hypertension I10 Documented by User: Javy Beyer MD 04/26/21 10:02 Subjective Subjective: Interval history: Agree with above. Much more alert today. I am able to decipher what she is saying. Medications: Reviewed: Yes Physical Exam Narrative: EXAM NARRATIVE: General exam is a white female, improvement in speech is noted. Neurologic: Dense left hemiparesis persists along with left facial droop Neck is supple no lymphadenopathy or thyromegaly Cardiovascular regular rate and rhythm, no murmur Lungs clear but with diminished breath sounds bilaterally Abdomen is soft with positive bowel sounds. No obvious organomegaly Extremities no cyanosis clubbing or edema, cap refill brisk Data : 04/26/21 05:12 04/26/21 05:12 A&P Assessment and plan (1) Stroke: Speech is somewhat better, and certainly her level of alertness. Initiate Plavix and aspirin if she is able to tolerate p.o. Continue statin Encourage smoking abstinence Hydrate today, until she is taking well p.o. Recheck electrolytes at 1 PM, ensuring her mild metabolic acidosis is resolving Await therapy evaluations. Very likely will need nursing facility placement. Appreciate neurology evaluation in the emergency department Continue telemetry. Possible need for BUDDY. Will discuss with patient today. If patient and family are agreeable we will have cardiology evaluate for possibility. Status: Acute (2) Left carotid artery occlusion: No intervention warranted Status: Acute (3) Diabetes mellitus type 2 in nonobese: Sliding scale insulin Consistent carb diet to be initiated when appropriate Status: Acute (4) Hypertension: Permissive hypertension today. Consider initiation of low-dose metoprolol this afternoon to prevent beta-charli withdrawal, when she is greater than 24 hours from CVA event Status: Acute Additional A&P Information Tobacco dependency. Encourage abstinence. History of COPD. DuoNeb as needed Allow natural . Discussed with family Lovenox for DVT prophylaxis. Currently she has significant deficit, and may require nursing facility placement for rehabilitation. Attestations Medical Necessity Statement*: Needs continued hospitalization secondary to severe CVA causing dense left hemiparesis with need for close monitoring, further evaluation, and therapy arrangements. Coding Level of Care Code Acute Roller Shop Utility Worker for [facility] Fwd Diagnoses Stroke I63.9 Left carotid artery occlusion I65.22 Diabetes mellitus type 2 in nonobese E11.9 Hypertension I10
--- NOTE | 2021-04-26 10:10 | PC.CHAP ---
Pastoral Care Encounter/Spiritual Assessment Type of Contact [] Declined front desk clerk visit [] Patient/Family/Request visit [] Outpatient visit [] Follow-up visit [] Physician referral [] Code/Alert [] Routine visit [] Staff referral [] Actively dying [] Patient sleeping [] Family support [] [] Out of room [] Palliative care [] [] Receiving care in room [] Pre-surgical visit [] Trauma [x] Long length of stay [] ICU visit [x] Other: unable to communicate Relational/Emotional Strength [] Patient feels connected with others/family/visitors/staff [] Distress [] Loneliness/isolation [] Abandonment Spirituality of Patient [] Person of Kathy [] Attends Yarsanism of their Kathy [] Believes in Prayer [] Reads Bible or Samaritan materials [] There are Spiritual issues to be addressed National Secretary Interventions [] Prayer [] Active listening [] Non-anxious presence [] Spiritual/emotional support [] Crisis/trauma care [] Spiritual counseling [] Bereavement support [] Provided bereavement packet [] Provided Bible/devotional materials [] Provided toy/stuffed animal, coloring book to patient or family member [] Provided Communion [] Anointing/[place] [] Salvation [] Completed spiritual assessment [] Other: Impact on Illness or Injury [] Angry [] Fearful [] Anxious [] Often cries [] Exhaustion [] Unable to work [] Unable to attend confucianism [] Unable to walk/stand [] Unable to read [] Unable to drive [] Unable to eat/drink [] Unable to sleep [] Unable to be with family [] Patient intubated [] Other: Summary unable to communicate Time spent with patient 5 mins
[2021-04-26 11:07] LABS: Glucose Point of Care 211 mg/dL (70-110)
[2021-04-26] MEDS: sodium chloride 0.9% 1,000 ML 75 ML IV (11:21)
[2021-04-26] MEDS: ondansetron 2 mg/ML SDV 2 mL 4 MG IVP (11:24)
[2021-04-26] MEDS: insulin lispro 100 unit/1 mL SUBCUT ×3 (13:39→21:27)
[2021-04-26 17:09] LABS: Glucose Point of Care 229 mg/dL (70-110)
[2021-04-26 17:47] LABS: Blood Urea Nitrogen 13 mg/dL (8-23); Calcium 8.6 mg/dL (8.5-10.5); Carbon Dioxide 18 mmol/L (22-29); Chloride 101 mmol/L (98-107); Glomerular Filtration Rate 124.6 mL/min (90-130); Glucose 214 mg/dL (65-115); Osmolality Calculated 293 mOsm/kg (285-295); Sodium 138 mmol/L (136-145)
[2021-04-26] MEDS: enoxaparin 40 mg/0.4 mL Syringe SUBCUT (18:09)
[2021-04-26 20:33] LABS: Glucose Point of Care 164 mg/dL (70-110)
[2021-04-27] VITALS (16 sets, daily range): BP systolic 172–195; BP diastolic 77–112; PULSE 55–94; RESP 16–20; TEMP 36.1–37.4; O2SAT 94–99
[2021-04-27] MEDS: sodium chloride 0.9% 1,000 ML 75 ML IV ×2 (00:44→14:22)
[2021-04-27] MEDS: morphine 4 mg/mL SDV 1 mL 2 MG IVP ×2 (04:19→09:10)
[2021-04-27] MEDS: famotidine 20 mg/2 mL INJ IVP ×2 (04:20→17:04)
[2021-04-27 05:34] LABS: Basophils # 0.1 10^3/uL (0.0-0.1); Basophils % 0.5 %; Eosinophils # 0.1 10^3/uL (0.0-0.8); Eosinophils % 0.5 %; Hematocrit 44.6 % (37.0-47.0); Hemoglobin 15.5 g/dL (11.5-15.3); Lymphocytes # 1.5 10^3/uL (0.8-4.8); Lymphocytes % 14.9 %; Mean Corpuscular HGB Conc 34.8 g/dL (30.0-36.0); Mean Corpuscular Hemoglobin 29.4 pg (28.0-34.0); Mean Corpuscular Volume 84.5 fl (81-99); Monocytes # 0.8 10^3/uL (0.2-0.9); Monocytes % 7.6 %; Neutrophils % 76.3 %; Nucleated Red Blood Cells % 0 %; Platelet Count 364 10^3/cmm (130-400); Red Blood Count 5.28 10^6/uL (4.1-5.3); Red Cell Distribution Width 12.5 % (12.1-15.1); White Blood Count 10.4 10^3/uL (4.0-10.0)
[2021-04-27 05:55] LABS: Anion Gap 18.7 (5-19); Blood Urea Nitrogen 15 mg/dL (8-23); Calcium 8.3 mg/dL (8.5-10.5); Carbon Dioxide 21 mmol/L (22-29); Chloride 105 mmol/L (98-107); Glomerular Filtration Rate 124.6 mL/min (90-130); Glucose 187 mg/dL (65-115); Osmolality Calculated 298 mOsm/kg (285-295); Potassium 3.7 mmol/L (3.5-5.1); Sodium 141 mmol/L (136-145)
[2021-04-27 06:30] LABS: Glucose Point of Care 209 mg/dL (70-110)
--- NOTE | 2021-04-27 07:29 | PM.PN ---
Documented by User: TORIE Lopez STDFELICITAS 04/27/21 07:37 Subjective Subjective: Interval history: Lucila still has a headache but otherwise no specific complaints. She inquired if she could sit up in a chair today. Vitals/I&O/Wt Last Vital Signs Temp 99.3 F 04/27/21 03:57 Pulse 90 04/27/21 03:57 Resp 18 04/27/21 04:19 BP 193/94 04/27/21 03:57 Pulse Ox 94 04/27/21 03:57 04/26/21 04/27/21 04/27/21 22:59 06:59 14:59 Intake Total 1015 / 1015 Output Total 300 / 300 300 / 600 Balance -300 / -300 715 / 415 Weight last 48 hrs Weight 84.141 kg Weight 43.59 kg Weight 79.379 kg Weight 79.379 kg Physical Exam Narrative: EXAM NARRATIVE: General: alert, improved speech HEENT: atraumatic, normocephalic Cardiovascular: RRR, no murmurs Lungs: clear to auscultation bilaterally Abdomen: soft, nontender Extremities: no cyanosis, clubbing, or edema Neurologic: dense left hemiparesis, improved left facial droop Data : 04/27/21 04:15 04/27/21 04:15 A&P Additional A&P Information (1) Stroke: Speech, level of alertness, left facial droop improving. Initiate Plavix and aspirin if she is able to tolerate p.o. Continue statin Encourage smoking abstinence Hydrate today, until she is taking well p.o. Anion gap 18.7 today from 23. Mild metabolic acidosis resolving. Await therapy evaluations. Very likely will need nursing facility placement. Appreciate neurology evaluation in the emergency department Continue telemetry. BUDDY scheduled for today. Status: Acute (2) Left carotid artery occlusion: No intervention warranted Status: Acute (3) Diabetes mellitus type 2 in nonobese: Sliding scale insulin Consistent carb diet to be initiated when appropriate Status: Acute (4) Hypertension: Permissive hypertension today. Low dose metroprolol initiated yesterday. Status: Acute Additional A&P Information Tobacco dependency. Encourage abstinence. History of COPD. DuoNeb as needed Allow natural . Discussed with family Lovenox for DVT prophylaxis. Currently she has significant deficit, and may require nursing facility placement for rehabilitation. Coding Level of Care Code Acute Senior Informatica Developer for Vignesh Toussaint Documented by User: Javy Beyer MD 04/27/21 08:38 Subjective Subjective: Interval history: Agree with above. No changes from above. I interviewed the patient as well. Medications: Reviewed: Yes Physical Exam Narrative: EXAM NARRATIVE: Agree with above. No changes. Patient still has dense left hemiparesis. Data : 04/27/21 04:15 04/27/21 04:15 A&P Additional A&P Information No changes needed to above. It appears currently that she will need rehabilitation Hopefully she can initiate p.o. today to start oral medication, and nutrition Attestations Medical Necessity Statement*: Needs continued hospitalization for close support with therapies and monitoring following severe CVA with dense left hemiparesis with need for ultimate path to rehabilitation. Coding Level of Care Code Acute Senior Informatica Developer for Sandyemy Toussaint
[2021-04-27] MEDS: ondansetron 2 mg/ML SDV 2 mL 4 MG IVP (08:33)
[2021-04-27] MEDS: insulin lispro 100 unit/1 mL SUBCUT ×3 (09:07→20:24)
[2021-04-27 09:21] LABS: Anion Gap 17.7 (5-19); Blood Urea Nitrogen 17 mg/dL (8-23); Calcium 8.1 mg/dL (8.5-10.5); Carbon Dioxide 21 mmol/L (22-29); Chloride 103 mmol/L (98-107); Glomerular Filtration Rate 124.6 mL/min (90-130); Glucose 200 mg/dL (65-115); Osmolality Calculated 293 mOsm/kg (285-295); Potassium 3.7 mmol/L (3.5-5.1); Sodium 138 mmol/L (136-145)
[2021-04-27] MEDS: metoclopramide 5 mg/mL SDV 2 mL IVP (10:51)
[2021-04-27 10:54] LABS: Glucose Point of Care 213 mg/dL (70-110)
[2021-04-27] MEDS: sodium chloride 0.9% 1,000 ML 30 ML IV (11:05)
--- NOTE | 2021-04-27 11:40 | ANES.PREANE2 ---
Pre-Anesthetic Assessment Pre-Anesthetic Assessment: Height/Weight: Height 1.68 m Weight 84.141 kg Temp Pulse Resp BP Pulse Ox 97.6 F 88 18 195/92 94 04/27/21 11:03 04/27/21 11:03 04/27/21 11:03 04/27/21 11:03 04/27/21 11:03 Preop Diagnosis: CVA Proposed Procedure: Operation Date: 04/27/21 12:00 Proposed Procedures p BUDDY(Not Applicable) - Afua Tucker MD Familial anesthetic complications: none Was Beta Vita taken within 24 hours: N/A (held by floor nurse will assess and give if needed.) Last intake: Meal 04/26/21 0900 Liquids 04/27/21 0900 mouth swabbed by nurses PRN Social: Social History: Tobacco Exam: Pre-Anes Outpt Exam: alert and oriented x 3 Additional Exam Findings (including area of procedure): slight lethargy reported by patient oriented to self, situation and year. Airway: Submandibular: WNL Cervical ROM: WNL MP: 2 Dentition: False Additional comments: dentures removed. Pulmonary: Pulmonary: COPD CV/HEM: CV/HEM: CAD and HTN Comments: left carotid artery stenosis, recent CVA x2 non-compliant with plavix. : : None reported Hepatic: Hepatic: None reported GI: GI: GERD Metabolic: Metabolic: DM Musc/skel: Musc/skel: Weakness Comments: left hemiparesis due to recent CVA Neuropsych: Neuropsych: CVA and TIA Anesthetic Plan: ASA status: 4 Anesthesia: Anesthesia Evaluation and MAC Risk of > 500 ml blood loss (7ml/kg in children): No Medications/Allergies Current Medications: Current Medications Generic Name Dose Route Start Last Admin Trade Name Freq PRN Reason Stop Dose Admin Aspirin 325 mg 04/26/21 09:00 04/26/21 13:39 Aspirin 325 Mg E c Tablet PO Not Given DAILY [facility] Atorvastatin Calci um 40 mg 04/25/21 21:00 04/26/21 20:26 Atorvastatin 40 Mg Tablet PO Not Given BEDTIME [facility] Clopidogrel Bisulf ate 75 mg 04/26/21 09:00 04/26/21 13:39 Clopidogrel 75 M g Tablet PO Not Given DAILY [facility] Enoxaparin Sodium 40 mg 04/25/21 18:00 04/26/21 18:09 Enoxaparin 40 Mg /0.4 Ml Syringe SUBCUT 40 mg Q24H RENA Administration Famotidine 20 mg 04/25/21 17:30 04/27/21 04:20 Famotidine 20 Mg /2 Ml Inj IVP 20 mg Q12H RENA Administration Sodium Chloride 1,000 mls @ 75 ml s/hr 04/26/21 09:00 04/27/21 00:44 Sodium Chloride 0.9% IV 75 mls/hr .[id number] RENA Administration Insulin Human Lisp ro 0 unit 04/26/21 12:00 04/27/21 09:07 Insulin Lispro 1 00 Unit/1 Ml SUBCUT 4 unit WM&BEDTIME RENA Administration Protocol Metoclopramide HCl 5 mg 04/27/21 09:28 04/27/21 10:51 Metoclopramide 5 Mg/Ml Sdv 2 Ml IVP 5 mg Q6H PRN Administration NAUSEA AND VOMITI NG Metoprolol Tartrat e 12.5 mg 04/26/21 21:00 04/26/21 20:26 Metoprolol Tartr ate 25 Mg Tablet PO Not Given BID@0900,2100 [facility] Morphine Sulfate 2 mg 04/25/21 17:13 04/27/21 09:10 Morphine 4 Mg/Ml Sdv 1 Ml IVP 2 mg Q4H PRN Administration SEVERE PAIN Ondansetron HCl 4 mg 04/25/21 17:13 04/27/21 08:33 Ondansetron 2 Mg /Ml Sdv 2 Ml IVP 4 mg Q6H PRN Administration NAUSEA AND VOMITI NG PFSH Anesthesia PFSH: Medical History (Updated 04/25/21 @ 12:51 by Javy Beyer MD) COPD (chronic obstructive pulmonary disease) Coronary artery disease Diabetes mellitus type 2 in nonobese Headache Hypertension Tobacco dependency Surgical History History of coronary artery bypass graft Family History Other CAD (coronary artery disease) Diabetes Social History Smoking and tobacco status: current every day smoker Alcohol intake: current Alcohol intake frequency: 0-2 Drinks per Day Data Anesthesia CBC & Chem 7: 04/27/21 04:15 04/27/21 08:52 Other Labs: Laboratory Results - last 48 hr 04/25/21 04/25/21 04/25/21 10:13 10:13 13:01 WBC RBC Hgb Hct MCV MCH MCHC RDW Plt Count MPV Neut % (Auto) Lymph % (Auto) [place] % (Auto) Eos % (Auto) Baso % (Auto) Neut # (Auto) Lymph # (Auto) [place] # (Auto) Eos # (Auto) Baso # (Auto) Nucleated RBC % (auto) Nucleated RBCs # Sodium 134 L Potassium 3.9 Chloride 96 L Carbon Dioxide 21 L Anion Gap 20.9 H BUN 10 Creatinine 0.7 GFR Calculation 84.5 L Glucose 288 H POC Glucose Estimat Average Glucose Hemoglobin A1c Calculated Osmolality 288 Calcium 8.8 Total Bilirubin 0.6 AST 13 ALT 16 Alkaline Phosphatase 95 Troponin T Gen 5 ng/L Troponin T Baseline 16 H Total Protein 7.3 Albumin 4.6 Globulin 2.7 Urine Color Yellow Urine Appearance Clear Urine pH 5 Ur Specific [place] 1.010 Urine Protein Neg Urine Glucose (UA) 4+ H Urine Ketones Negative Urine Blood Neg Urine Nitrate Negative Urine Bilirubin Neg Urine Urobilinogen Norm Ur Leukocyte Esterase Negative Urine Opiates Screen Ur Barbiturates Screen Ur Phencyclidine Scrn Ur Amphetamines Screen U Benzodiazepines Scrn Urine Cocaine Screen U Marijuana (THC) Screen 04/25/21 04/25/21 04/26/21 13:01 17:49 05:12 WBC RBC Hgb Hct MCV MCH MCHC RDW Plt Count MPV Neut % (Auto) Lymph % (Auto) [place] % (Auto) Eos % (Auto) Baso % (Auto) Neut # (Auto) Lymph # (Auto) [place] # (Auto) Eos # (Auto) Baso # (Auto) Nucleated RBC % (auto) Nucleated RBCs # Sodium Potassium Chloride Carbon Dioxide Anion Gap BUN Creatinine GFR Calculation Glucose POC Glucose Estimat Average Glucose 249 Hemoglobin A1c 10.3 H Calculated Osmolality Calcium Total Bilirubin AST ALT Alkaline Phosphatase Troponin T Gen 5 ng/L 25 H Troponin T Baseline Total Protein Albumin Globulin Urine Color Urine Appearance Urine pH Ur Specific [place] Urine Protein Urine Glucose (UA) Urine Ketones Urine Blood Urine Nitrate Urine Bilirubin Urine Urobilinogen Ur Leukocyte Esterase Urine Opiates Screen Negative Ur Barbiturates Screen Negative Ur Phencyclidine Scrn Negative Ur Amphetamines Screen Negative U Benzodiazepines Scrn Positive H Urine Cocaine Screen Negative U Marijuana (THC) Screen Negative 04/26/21 04/26/21 04/26/21 05:12 05:12 10:51 WBC 12.0 H RBC 5.56 H Hgb 16.3 H Hct 46.1 MCV 82.9 MCH 29.3 MCHC 35.4 RDW 12.3 Plt Count 332 MPV 10.6 H Neut % (Auto) 81.2 Lymph % (Auto) 11.8 [place] % (Auto) 5.9 Eos % (Auto) 0.3 Baso % (Auto) 0.5 Neut # (Auto) 9.73 H Lymph # (Auto) 1.4 [place] # (Auto) 0.7 Eos # (Auto) 0.0 Baso # (Auto) 0.1 Nucleated RBC % (auto) 0 Nucleated RBCs # 0.0 Sodium 137 Potassium 3.9 Chloride 100 Carbon Dioxide 15 L Anion Gap 25.9 H BUN 12 Creatinine 0.6 GFR Calculation 101.0 Glucose 199 H POC Glucose 211 H Estimat Average Glucose Hemoglobin A1c Calculated Osmolality 289 Calcium 8.6 Total Bilirubin AST ALT Alkaline Phosphatase Troponin T Gen 5 ng/L Troponin T Baseline Total Protein Albumin Globulin Urine Color Urine Appearance Urine pH Ur Specific [place] Urine Protein Urine Glucose (UA) Urine Ketones Urine Blood Urine Nitrate Urine Bilirubin Urine Urobilinogen Ur Leukocyte Esterase Urine Opiates Screen Ur Barbiturates Screen Ur Phencyclidine Scrn Ur Amphetamines Screen U Benzodiazepines Scrn Urine Cocaine Screen U Marijuana (THC) Screen 04/26/21 04/26/21 04/26/21 17:02 17:20 20:27 WBC RBC Hgb Hct MCV MCH MCHC RDW Plt Count MPV Neut % (Auto) Lymph % (Auto) [place] % (Auto) Eos % (Auto) Baso % (Auto) Neut # (Auto) Lymph # (Auto) [place] # (Auto) Eos # (Auto) Baso # (Auto) Nucleated RBC % (auto) Nucleated RBCs # Sodium 138 Potassium 4.0 Chloride 101 Carbon Dioxide 18 L Anion Gap 23.0 H BUN 13 Creatinine 0.5 GFR Calculation 124.6 Glucose 214 H POC Glucose 229 H 164 H Estimat Average Glucose Hemoglobin A1c Calculated Osmolality 293 Calcium 8.6 Total Bilirubin AST ALT Alkaline Phosphatase Troponin T Gen 5 ng/L Troponin T Baseline Total Protein Albumin Globulin Urine Color Urine Appearance Urine pH Ur Specific [place] Urine Protein Urine Glucose (UA) Urine Ketones Urine Blood Urine Nitrate Urine Bilirubin Urine Urobilinogen Ur Leukocyte Esterase Urine Opiates Screen Ur Barbiturates Screen Ur Phencyclidine Scrn Ur Amphetamines Screen U Benzodiazepines Scrn Urine Cocaine Screen U Marijuana (THC) Screen 04/27/21 04/27/21 04/27/21 04:15 04:15 06:17 WBC 10.4 H RBC 5.28 Hgb 15.5 H Hct 44.6 MCV 84.5 MCH 29.4 MCHC 34.8 RDW 12.5 Plt Count 364 MPV 11.0 H Neut % (Auto) 76.3 Lymph % (Auto) 14.9 [place] % (Auto) 7.6 Eos % (Auto) 0.5 Baso % (Auto) 0.5 Neut # (Auto) 7.90 H Lymph # (Auto) 1.5 [place] # (Auto) 0.8 Eos # (Auto) 0.1 Baso # (Auto) 0.1 Nucleated RBC % (auto) 0 Nucleated RBCs # 0.0 Sodium 141 Potassium 3.7 Chloride 105 Carbon Dioxide 21 L Anion Gap 18.7 BUN 15 Creatinine 0.5 GFR Calculation 124.6 Glucose 187 H POC Glucose 209 H Estimat Average Glucose Hemoglobin A1c Calculated Osmolality 298 H Calcium 8.3 L Total Bilirubin AST ALT Alkaline Phosphatase Troponin T Gen 5 ng/L Troponin T Baseline Total Protein Albumin Globulin Urine Color Urine Appearance Urine pH Ur Specific [place] Urine Protein Urine Glucose (UA) Urine Ketones Urine Blood Urine Nitrate Urine Bilirubin Urine Urobilinogen Ur Leukocyte Esterase Urine Opiates Screen Ur Barbiturates Screen Ur Phencyclidine Scrn Ur Amphetamines Screen U Benzodiazepines Scrn Urine Cocaine Screen U Marijuana (THC) Screen 04/27/21 04/27/21 08:52 10:43 WBC RBC Hgb Hct MCV MCH MCHC RDW Plt Count MPV Neut % (Auto) Lymph % (Auto) [place] % (Auto) Eos % (Auto) Baso % (Auto) Neut # (Auto) Lymph # (Auto) [place] # (Auto) Eos # (Auto) Baso # (Auto) Nucleated RBC % (auto) Nucleated RBCs # Sodium 138 Potassium 3.7 Chloride 103 Carbon Dioxide 21 L Anion Gap 17.7 BUN 17 Creatinine 0.5 GFR Calculation 124.6 Glucose 200 H POC Glucose 213 H Estimat Average Glucose Hemoglobin A1c Calculated Osmolality 293 Calcium 8.1 L Total Bilirubin AST ALT Alkaline Phosphatase Troponin T Gen 5 ng/L Troponin T Baseline Total Protein Albumin Globulin Urine Color Urine Appearance Urine pH Ur Specific [place] Urine Protein Urine Glucose (UA) Urine Ketones Urine Blood Urine Nitrate Urine Bilirubin Urine Urobilinogen Ur Leukocyte Esterase Urine Opiates Screen Ur Barbiturates Screen Ur Phencyclidine Scrn Ur Amphetamines Screen U Benzodiazepines Scrn Urine Cocaine Screen U Marijuana (THC) Screen Cardiac Studies: Echocardiogram 03/15/21
--- NOTE | 2021-04-27 12:00 | USCV_ITS ---
Lucila Perea Age: 65 Gender: F : 1955 Exam Date: 04/27/2021 12:31 Ordering Phys: Javy Beyer MD Technologist: FELI Exam Location: [facility] – [place] Indication: CVA BP: / HR: Rhythm: Sinus Technical Quality: Adequate MEASUREMENTS (Male / Female) Normal Values Medications Patient given IV sedation by anesthesia service, for details please refer to the anesthesia report. Complications None. Proc. Components The patient was brought to the BUDDY examination room in a fasting state after obtaining an informed consent. BUDDY was performed at multiple levels. The patient tolerated the procedure well and there were no complications. FINDINGS Left Ventricle Normal left ventricular cavity size. Normal left ventricular systolic function. No regional wall motion abnormalities. Left ventricular ejection fraction is estimated at 60 %. Right Ventricle The right ventricle is normal in size and function. Right Atrium The right atrium is normal in size. Left Atrium The left atrium is normal in size. LA Appendage No thrombus visualized in the left atrial appendage. Normal flow velocities in the left atrial appendage. IA Septum No patent foramen ovale. Contrast injection with bubble study was negative for PFO with or without Valsalva. Mitral Valve Mildly thickened mitral valve. No mitral valve stenosis. Mild mitral valve regurgitation. Aortic Valve Aortic valve sclerosis without stenosis or regurgitation. Tricuspid Valve Mild tricuspid valve regurgitation. Pulmonic Valve Structurally normal pulmonic valve without significant stenosis. There is no pulmonic regurgitation. Pericardium Normal pericardium without effusion. Aorta Normal ascending aorta dimension. CONCLUSIONS 1-Normal left ventricular cavity size. Normal left ventricular systolic function. No regional wall motion abnormalities. Left ventricular ejection fraction is estimated at 60 %. 2-No thrombus visualized in the left atrial appendage. Normal flow velocities in the left atrial appendage. 3-Mild tricuspid valve regurgitation. 4-Mildly thickened mitral valve. No mitral valve stenosis. Mild mitral valve regurgitation. 5-There is no pericardial effusion. 6-There is no pericardial effusion. 7-There are no prior Trans esophageal echocardiogram studies to compare. Afua Tucker MD (Electronically Signed) Final Date: 27 April 2021 18:35 S
--- NOTE | 2021-04-27 12:20 | W.PM.OPSUD ---
Surgery/Procedure H&P Update DATE OF PROCEDURE: April 27, 2021 DATE H&P PERFORMED: 04/26/21 H&P UPDATE INFORMATION: I have reviewed H&P completed within last 30 days, I have examined patient prior to procedure and No changes to prior documentation PREOP DIAGNOSIS: CVA PLANNED PROCEDURE: Operation Date: 04/27/21 12:00 Proposed Procedures p BUDDY(Not Applicable) - Afua Tucker MD AIRWAY EVAL/ANESTHESIA PLAN: ASA II and Risks, benefits & alternatives of sedation and/or procedure discussed
[2021-04-27] MEDS: acetaminophen 325 mg Tablet 650 MG PO (14:24)
[2021-04-27] MEDS: clopidogrel 75 mg Tablet PO (14:24)
[2021-04-27] MEDS: metoprolol tartrate 25 mg Tablet 12.5 MG PO ×2 (14:24→20:11)
[2021-04-27] MEDS: aspirin 325 mg EC Tablet PO (14:24)
[2021-04-27] MEDS: enoxaparin 40 mg/0.4 mL Syringe SUBCUT (17:04)
[2021-04-27 17:30] LABS: Glucose Point of Care 234 mg/dL (70-110)
[2021-04-27] MEDS: atorvastatin 40 mg Tablet PO (20:11)
[2021-04-27 20:39] LABS: Glucose Point of Care 204 mg/dL (70-110)
[2021-04-28] VITALS (10 sets, daily range): BP systolic 138–183; BP diastolic 50–97; PULSE 52–83; RESP 16–23; TEMP 36.3–37.2; O2SAT 94–98
[2021-04-28] MEDS: sodium chloride 0.9% 1,000 ML 75 ML IV ×2 (03:40→16:45)
[2021-04-28] MEDS: famotidine 20 mg/2 mL INJ IVP ×2 (04:29→16:46)
[2021-04-28 06:38] LABS: Glucose Point of Care 175 mg/dL (70-110)
--- NOTE | 2021-04-28 06:42 | P.PN_ITS ---
Subjective Subjective: Interval history: According to nursing staff patient is doing about the same today. There is no fevers or chills noted. She is awake and will respond to verbal stimuli sometimes appropriately. She has a hard time maintaining her gaze. She can use her right arm to some extent and move her right leg but unable to have any movement of the left side. We are still awaiting acceptance at rehab facility. She has been placed on a pur?ed diet and seems to be doing okay with this. Nursing notices no choking with it. Medications: Reviewed: Yes Vitals/I&O/Wt Last Vital Signs Temp 97.4 F L 04/28/21 05:12 Pulse 82 04/28/21 06:10 Resp 20 H 04/28/21 05:12 BP 183/79 04/28/21 05:12 Pulse Ox 96 04/28/21 05:12 04/27/21 04/27/21 04/28/21 14:59 22:59 06:59 Intake Total 1700 / 2727.50 233.75 / 2727.50 793.75 / 2727.50 Balance 1700 / 2727.50 233.75 / 2727.50 793.75 / 2727.50 Weight last 48 hrs Weight 185 lb 8 oz Weight 96 lb 1.6 oz Physical Exam Narrative: EXAM NARRATIVE: General: No acute distress, Alert. Well nourished. Heart: Regular rate and rhythm. No murmurs, rubs or gallops. Normal capillary refill. Lungs: Clear to auscultation. No wheezes, rhonchi or rales. Abdomen: Positive bowel sounds. Non-tender, non-distended. No hepatosplenomegaly. No gaurding. Extremities: No clubbing, cyanosis, or edema. Negative Natalia's Neurological: Patient definitely has lateral gaze. Complete paralysis of her left arm and leg. Able to squeeze my hand with her right arm and move it. Data : 04/27/21 04:15 04/27/21 08:52 A&P Assessment and plan (1) Stroke: - Patient does not seem to be shown much improvement in her symptoms per nursing staff and previous notes. -Blood pressure is running a bit higher than what we would like at this time. We will add a low-dose of lisinopril and continue to monitor. Allow for some permissive hypertension. -Continue to work on placement in rehab facility -Continue with physical therapy, speech therapy, Occupational Therapy. Status: Acute (2) Left carotid artery occlusion: - Appears to have some flow around this. Stable with no indication for surgery. Status: Acute (3) Diabetes mellitus type 2 in nonobese: - Blood sugars running a little high but we will continue to monitor these as well. Status: Acute (4) Hypertension: - Elevated, add low-dose lisinopril Status: Acute Attestations Medical Necessity Statement*: Patient is a 65-year-old female with an acute CVA. She is requiring continued inpatient treatment while we await rehab placement. Coding Level of Care Code Acute Name Plate Stamping Machine Operator for Vignesh Toussaint Diagnoses Stroke I63.9 Left carotid artery occlusion I65.22 Diabetes mellitus type 2 in nonobese E11.9 Hypertension I10
[2021-04-28] MEDS: metoprolol tartrate 25 mg Tablet 12.5 MG PO ×2 (08:22→21:00)
[2021-04-28] MEDS: clopidogrel 75 mg Tablet PO (08:22)
[2021-04-28] MEDS: aspirin 325 mg EC Tablet PO (08:22)
[2021-04-28] MEDS: insulin lispro 100 unit/1 mL SUBCUT ×4 (08:23→21:01)
[2021-04-28] MEDS: lisinopril 5 mg Tablet PO (08:25)
[2021-04-28] MEDS: ondansetron 2 mg/ML SDV 2 mL 4 MG IVP (09:13)
[2021-04-28] MEDS: morphine 4 mg/mL SDV 1 mL 2 MG IVP (09:13)
[2021-04-28 11:35] LABS: Glucose Point of Care 211 mg/dL (70-110)
[2021-04-28] MEDS: enoxaparin 40 mg/0.4 mL Syringe SUBCUT (16:46)
[2021-04-28 17:03] LABS: Glucose Point of Care 167 mg/dL (70-110)
[2021-04-28 20:43] LABS: Glucose Point of Care 202 mg/dL (70-110)
[2021-04-28] MEDS: acetaminophen 325 mg Tablet 650 MG PO (21:01)
[2021-04-28] MEDS: atorvastatin 40 mg Tablet PO (21:01)
[2021-04-29] VITALS (9 sets, daily range): BP systolic 134–177; BP diastolic 64–76; PULSE 48–68; RESP 16–17; TEMP 36.3–37.2; O2SAT 92–97
[2021-04-29] MEDS: famotidine 20 mg/2 mL INJ IVP ×2 (04:54→17:15)
[2021-04-29] MEDS: sodium chloride 0.9% 1,000 ML 75 ML IV ×2 (05:51→18:35)
[2021-04-29] MEDS: acetaminophen 325 mg Tablet 650 MG PO ×2 (05:56→11:38)
[2021-04-29 06:36] LABS: Glucose Point of Care 168 mg/dL (70-110)
--- NOTE | 2021-04-29 06:53 | PM.PN ---
Subjective Subjective: Interval history: Patient seems to have had a good night last night. She no use of her starting to focus a little more. she is starting to get some use of her left leg still no use of her left arm. No fevers overnight. Blood pressure has been much better overnight. She had 1 episode of minor bradycardia.. Medications: Reviewed: Yes Vitals/I&O/Wt Last Vital Signs Temp 98.2 F 04/29/21 03:40 Pulse 58 L 04/29/21 06:37 Resp 16 04/29/21 03:40 BP 134/64 04/29/21 03:40 Pulse Ox 97 04/29/21 03:40 04/28/21 04/28/21 04/29/21 14:59 22:59 06:59 Intake Total 240 / 2643.75 1221.25 / 2643.75 1182.5 / 2643.75 Balance 240 / 2643.75 1221.25 / 2643.75 1182.5 / 2643.75 Weight last 48 hrs Weight 187 lb 9.6 oz Physical Exam Narrative: EXAM NARRATIVE: General: No acute distress, Alert. Well nourished. Heart: Regular rate and rhythm. No murmurs, rubs or gallops. Normal capillary refill. Lungs: Clear to auscultation. No wheezes, rhonchi or rales. Abdomen: Positive bowel sounds. Non-tender, non-distended. No hepatosplenomegaly. No gaurding. Extremities: No clubbing, cyanosis, or edema. Negative Natalia's Neurological: Patient definitely has lateral gaze but again seems to be less notable than yesterday. She is still not able to use her left arm. She is able to raise her left leg slightly. Able to squeeze my hand with her right arm and move it. She is speaking more appropriately. Data : 04/27/21 04:15 04/27/21 08:52 A&P Assessment and plan (1) Stroke: - She is actually showing some improvement over yesterday. Continue to work towards rehab. -Blood pressure is running better today with adding lisinopril. Continue to monitor. Continue to monitor the bradycardia as well. May need to reduce metoprolol.. -Continue to work on placement in rehab facility -Continue with physical therapy, speech therapy, Occupational Therapy. Status: Acute (2) Left carotid artery occlusion: - Appears to have some flow around this. Stable with no indication for surgery. Status: Acute (3) Diabetes mellitus type 2 in nonobese: - Blood sugars running a little high but we will continue to monitor these as well. Status: Acute (4) Hypertension: Stable Status: Acute Attestations Medical Necessity Statement*: Patient is a 65-year-old female requiring continued inpatient hospitalization and monitoring for acute CVA while awaiting placement in a rehab facility Coding Level of Care Code Acute Technology Applications Consultant for [facility] Diagnoses Stroke I63.9 Left carotid artery occlusion I65.22 Diabetes mellitus type 2 in nonobese E11.9 Hypertension I10
[2021-04-29] MEDS: insulin lispro 100 unit/1 mL SUBCUT ×4 (08:50→21:10)
[2021-04-29] MEDS: metoprolol tartrate 25 mg Tablet 12.5 MG PO ×2 (08:50→21:10)
[2021-04-29] MEDS: clopidogrel 75 mg Tablet PO (08:50)
[2021-04-29] MEDS: lisinopril 5 mg Tablet PO (08:50)
[2021-04-29] MEDS: aspirin 325 mg EC Tablet PO (08:50)
[2021-04-29 10:36] LABS: Glucose Point of Care 183 mg/dL (70-110)
[2021-04-29] MEDS: enoxaparin 40 mg/0.4 mL Syringe SUBCUT (17:15)
[2021-04-29 17:19] LABS: Glucose Point of Care 207 mg/dL (70-110)
[2021-04-29] MEDS: ondansetron 2 mg/ML SDV 2 mL 4 MG IVP (17:37)
[2021-04-29 20:55] LABS: Glucose Point of Care 242 mg/dL (70-110)
[2021-04-29] MEDS: atorvastatin 40 mg Tablet PO (21:10)
[2021-04-30] VITALS (7 sets, daily range): BP systolic 149–183; BP diastolic 65–89; PULSE 52–78; RESP 16–18; TEMP 36.6–36.9; O2SAT 92–95
[2021-04-30] MEDS: ondansetron 2 mg/ML SDV 2 mL 4 MG IVP (01:47)
--- NOTE | 2021-04-30 05:21 | PC.NURSE ---
SHIFT SUMMARY Took awhile for pt to go to sleep tonight. Rested better second part of shift. Has yelled out more tonight and little more confusion. Thought she needed to get up and fix dinner. Speech is slurred but easily understood. Left arm remains flaccid. Does move left leg some but has trouble raising it up off bed. IV infusing at 75ml/hr rate. Is incont of urine. c/o some dizziness still when she is raised up too much or turns in bed sometimes when being changded. Had c/o nausea X1 stating she was going to throw up. Did not throw up and received IV Zofran for nausea. c/o being cold at times then next time in she has covers thrown off and c/o being hot. Takes thickened liquids well and meds crushed in pudding. Telemetry showing SR/SR with rate 50's-60's range
[2021-04-30 06:29] LABS: Glucose Point of Care 162 mg/dL (70-110)
[2021-04-30] MEDS: famotidine 20 mg/2 mL INJ IVP (06:46)
[2021-04-30] MEDS: sodium chloride 0.9% 1,000 ML 75 ML IV (06:53)
[2021-04-30] MEDS: clopidogrel 75 mg Tablet PO (08:15)
[2021-04-30] MEDS: lisinopril 5 mg Tablet PO (08:15)
[2021-04-30] MEDS: aspirin 325 mg EC Tablet PO (08:15)
[2021-04-30] MEDS: metoprolol tartrate 25 mg Tablet 12.5 MG PO ×2 (08:15→21:39)
[2021-04-30] MEDS: insulin lispro 100 unit/1 mL SUBCUT ×3 (08:16→17:03)
--- NOTE | 2021-04-30 08:31 | PC.NURSE ---
patient hasn't had BM since admission. Dr Beyer notified. Meds ordered. If patient has loose stool meds will be reduced.
[2021-04-30] MEDS: sennosides-docusate Tablet 2 TAB PO ×2 (09:57→17:03)
[2021-04-30] MEDS: acetaminophen 325 mg Tablet 650 MG PO ×2 (09:57→16:16)
--- NOTE | 2021-04-30 10:20 | P.PN_ITS ---
Subjective Subjective: Interval history: Lucila reports she is doing okay. We are awaiting placement. Arm and leg do not move any better. Medications: Reviewed: Yes Vitals/I&O/Wt Last Vital Signs Temp 98.1 F 04/30/21 08:20 Pulse 56 L 04/30/21 08:20 Resp 18 04/30/21 08:20 BP 183/66 04/30/21 08:20 Pulse Ox 93 04/30/21 08:20 04/29/21 04/30/21 04/30/21 22:59 06:59 14:59 Intake Total 1130 / 1370 1042.5 / 2412.5 381.25 / 381.25 Balance 1130 / 1370 1042.5 / 2412.5 381.25 / 381.25 Weight last 48 hrs Weight 85.094 kg Physical Exam Narrative: EXAM NARRATIVE: General exam no distress Neck is supple Cardiovascular regular rate and rhythm Lungs clear Abdomen is soft Extremities no cyanosis clubbing or edema Neuro: Left dense hemiparesis, left facial droop. Speech and level of alertness significantly improved. Data : 04/27/21 04:15 04/27/21 08:52 A&P Assessment and plan (1) Stroke: Continue Plavix, aspirin, statin Encourage smoking abstinence At this point discontinue IV fluids BUDDY was performed and no intracardiac thrombus No evidence of arrhythmia currently Status: Acute (2) Left carotid artery occlusion: No intervention warranted Status: Acute (3) Diabetes mellitus type 2 in nonobese: Sliding scale insulin Consistent carb diet Status: Acute (4) Hypertension: Continue metoprolol low-dose, increase lisinopril to 10 mg daily Status: Acute Additional A&P Information Allow natural Lovenox for DVT prophylaxis Attestations Medical Necessity Statement*: Needs continued hospitalization awaiting placement secondary to CVA Coding Level of Care Code Acute Chemistry Quality Control Technician for [facility] Fwd Diagnoses Stroke I63.9 Left carotid artery occlusion I65.22 Diabetes mellitus type 2 in nonobese E11.9 Hypertension I10
[2021-04-30 11:08] LABS: Glucose Point of Care 223 mg/dL (70-110)
[2021-04-30 16:53] LABS: Glucose Point of Care 167 mg/dL (70-110)
[2021-04-30] MEDS: famotidine 20 mg Tablet PO (17:03)
[2021-04-30] MEDS: enoxaparin 40 mg/0.4 mL Syringe SUBCUT (17:03)
[2021-04-30] MEDS: atorvastatin 40 mg Tablet PO (21:39)
[2021-05-01] VITALS (8 sets, daily range): BP systolic 155–180; BP diastolic 71–83; PULSE 56–74; RESP 15–17; TEMP 36.6–37.1; O2SAT 90–97
[2021-05-01] MEDS: metoprolol tartrate 25 mg Tablet 12.5 MG PO ×2 (09:02→21:39)
[2021-05-01] MEDS: insulin lispro 100 unit/1 mL SUBCUT ×4 (09:02→21:35)
[2021-05-01] MEDS: sennosides-docusate Tablet 2 TAB PO ×2 (09:03→17:15)
[2021-05-01] MEDS: clopidogrel 75 mg Tablet PO (09:03)
[2021-05-01] MEDS: famotidine 20 mg Tablet PO ×2 (09:03→17:15)
[2021-05-01] MEDS: aspirin 325 mg EC Tablet PO (09:03)
[2021-05-01] MEDS: lisinopril 10 mg Tablet PO (09:03)
[2021-05-01 09:42] LABS: Basophils # 0.1 10^3/uL (0.0-0.1); Basophils % 0.7 %; Eosinophils # 0.1 10^3/uL (0.0-0.8); Hematocrit 42.1 % (37.0-47.0); Hemoglobin 15.3 g/dL (11.5-15.3); Lymphocytes # 1.3 10^3/uL (0.8-4.8); Mean Corpuscular HGB Conc 36.3 g/dL (30.0-36.0); Mean Corpuscular Hemoglobin 30.1 pg (28.0-34.0); Mean Corpuscular Volume 82.9 fl (81-99); Mean Platelet Volume 11.1 fL (7.4-10.4); Monocytes # 0.8 10^3/uL (0.2-0.9); Monocytes % 7.9 %; Neutrophils # 7.97 10^3/uL (1.8-7.7); Nucleated Red Blood Cells % 0 %; Platelet Count 342 10^3/cmm (130-400); Red Blood Count 5.08 10^6/uL (4.1-5.3); Red Cell Distribution Width 11.9 % (12.1-15.1); White Blood Count 10.3 10^3/uL (4.0-10.0)
[2021-05-01] MEDS: acetaminophen 325 mg Tablet 650 MG PO ×2 (10:04→15:41)
[2021-05-01 10:12] LABS: Blood Urea Nitrogen 10 mg/dL (8-23); Carbon Dioxide 22 mmol/L (22-29); Chloride 102 mmol/L (98-107); Glomerular Filtration Rate 161.2 mL/min (90-130); Glucose 189 mg/dL (65-115); Osmolality Calculated 298 mOsm/kg (285-295); Sodium 142 mmol/L (136-145)
[2021-05-01 10:19] LABS: Anion Gap 20.8 (5-19)
[2021-05-01 10:20] LABS: Potassium 2.8 mmol/L (3.5-5.1)
--- NOTE | 2021-05-01 10:36 | P.PN_ITS ---
Subjective Subjective: Interval history: Lucila reports she is doing okay. Medications: Reviewed: Yes Vitals/I&O/Wt Last Vital Signs Temp 98.2 F 05/01/21 08:55 Pulse 74 05/01/21 08:55 Resp 16 05/01/21 08:55 BP 164/75 05/01/21 08:55 Pulse Ox 94 05/01/21 08:55 04/30/21 05/01/21 05/01/21 22:59 06:59 14:59 Output Total 0 / 200 Balance 0 / 452.083 Physical Exam Narrative: EXAM NARRATIVE: General exam no distress Neck is supple Cardiovascular regular rate and rhythm Lungs clear Abdomen is soft Extremities no cyanosis clubbing or edema Neuro: Left dense hemiparesis, left facial droop. Speech and level of alertness significantly improved. No changes today Data : 05/01/21 09:00 05/01/21 09:00 A&P Assessment and plan (1) Stroke: Continue Plavix, aspirin, statin Encourage smoking abstinence She is maintaining hydration orally, without IV fluids BUDDY was performed and no intracardiac thrombus No evidence of arrhythmia currently Status: Acute (2) Left carotid artery occlusion: No intervention warranted Status: Acute (3) Diabetes mellitus type 2 in nonobese: Sliding scale insulin Consistent carb diet Status: Acute (4) Hypertension: Continue metoprolol low-dose Lisinopril had been increased to 10 mg daily, first dose of this today Status: Acute Additional A&P Information Hypokalemia, supplement IV and p.o. Recheck BMP tomorrow Allow natural Lovenox for DVT prophylaxis Attestations Medical Necessity Statement*: Await[facility] Coding Level of Care Code Acute Gas Line Installer Supervisor for [facility] Fwd Diagnoses Stroke I63.9 Left carotid artery occlusion I65.22 Diabetes mellitus type 2 in nonobese E11.9 Hypertension I10
[2021-05-01] MEDS: lidocaine 1% 5 ML in potassium chloride premix 100 ML 25 ML IV (11:45)
[2021-05-01] MEDS: potassium chloride oral liq 20 mEq/15 mL UDC 40 MEQ PO ×2 (11:46→15:11)
[2021-05-01 12:17] LABS: Glucose Point of Care 311 mg/dL (70-110)
--- NOTE | 2021-05-01 15:10 | PC.NURSE ---
notified Dr Beyer, patient is complaining of pain behind right eye, speech is more slurred and she states she just don't feel good. this started within the last hour per daughter at bedside.
--- NOTE | 2021-05-01 15:14 | CT_ITS ---
WS: [id number] CT HEAD NONCONTRAST HISTORY: headache, acute , s/p CVA TECHNIQUE: Contiguous axial imaging performed through the brain in 2.5 mm imaging. Bone and soft tiss ue windows. Sagittal and coronal reformats reviewed. All CT scans at [facility] use at least one of these dose optimization techniques: automated exposure control; mA and/or kV adjustment per pa tient size (includes targeted exams where dose is matched to clinical indication); or iterative recon struction. DLP: 818.53 mGy.cm COMPARISON: 04/25/2021 No acute hemorrhage since the prior examination. There is a new area of decreased attenuation which h as developed in the lateral RIGHT cerebellum measuring 16 x 11 mm consistent with an acute/subacute i nfarct. There is an additional area of marked low attenuation involving the RIGHT middle cerebellar p eduncle and RIGHT [place] consistent with an acute to subacute infarct which has developed since the santo or study. Large remote infarct with encephalomalacia in the LEFT parietal region. There are a few additional sc attered areas of decreased attenuation surrounding the ventricles which were described on the prior s tudy without progression. Ventricles: Normal size with no hydrocephalus. No definite thrombus within the basilar or vertebral arteries. There is some increased density but th is is obscured and exacerbated by motion artifact. Paranasal sinuses: As visualized are clear. Mastoid air cells: Well pneumatized. Calvarium and scalp: Skull is intact with no soft tissue edema or swelling. CT/CT head wo con* [id number] IMPRESSION: 1. Interval development since 04/25/2021 of acute to subacute infarcts involvin g portion of the RIGHT cerebellum, RIGHT middle cerebellar peduncle and RIGHT p ons. No hemorrhage. 2. This study is not adequate to evaluate for thrombus within the vertebral or basilar arteries or branches due to motion artifact and artifact from the skul l base. 3. The additional areas of decreased attenuation throughout the brain are stab le. Notified Javy Beyer MD at 05/01/2021 3:59 PM.
[2021-05-01] MEDS: ondansetron 2 mg/ML SDV 2 mL 4 MG IVP (15:41)
[2021-05-01] MEDS: sodium chloride 0.9% 250 ML IV (16:28)
[2021-05-01 17:02] LABS: Glucose Point of Care 199 mg/dL (70-110)
[2021-05-01] MEDS: enoxaparin 40 mg/0.4 mL Syringe SUBCUT (17:15)
[2021-05-01 20:59] LABS: Glucose Point of Care 204 mg/dL (70-110)
[2021-05-01] MEDS: atorvastatin 40 mg Tablet PO (21:39)
[2021-05-02] VITALS (7 sets, daily range): BP systolic 135–162; BP diastolic 68–82; PULSE 56–93; RESP 12–18; TEMP 36.5–37; O2SAT 94–98
[2021-05-02 06:30] LABS: Anion Gap 17.1 (5-19); Blood Urea Nitrogen 13 mg/dL (8-23); Calcium 8.1 mg/dL (8.5-10.5); Carbon Dioxide 23 mmol/L (22-29); Chloride 103 mmol/L (98-107); Glomerular Filtration Rate 161.2 mL/min (90-130); Glucose 173 mg/dL (65-115); Osmolality Calculated 294 mOsm/kg (285-295); Potassium 3.1 mmol/L (3.5-5.1); Sodium 140 mmol/L (136-145)
[2021-05-02 06:49] LABS: Glucose Point of Care 194 mg/dL (70-110)
[2021-05-02 07:58] LABS: Magnesium 1.8 mg/dL (1.7-2.3)
[2021-05-02] MEDS: famotidine 20 mg Tablet PO ×2 (08:46→19:19)
[2021-05-02] MEDS: metoprolol tartrate 25 mg Tablet 12.5 MG PO ×2 (08:46→21:53)
[2021-05-02] MEDS: lisinopril 10 mg Tablet PO (08:46)
[2021-05-02] MEDS: aspirin 81 mg EC Tablet PO (08:46)
[2021-05-02] MEDS: acetaminophen 325 mg Tablet 650 MG PO ×2 (08:47→15:06)
[2021-05-02] MEDS: sennosides-docusate Tablet 2 TAB PO ×2 (08:47→19:19)
[2021-05-02] MEDS: potassium chloride ER 20 mEq Tablet 40 MEQ PO ×2 (08:47→15:07)
[2021-05-02] MEDS: clopidogrel 75 mg Tablet PO (08:47)
[2021-05-02] MEDS: insulin lispro 100 unit/1 mL SUBCUT ×4 (08:48→22:05)
--- NOTE | 2021-05-02 09:06 | P.PN_ITS ---
Subjective Subjective: Interval history: Lucila reports she has a headache today but feels better than yesterday afternoon. Yesterday afternoon she had acute onset of headache, and nausea and a CT head was done. This did not demonstrate any hemorrhage. Medications: Reviewed: Yes Vitals/I&O/Wt Last Vital Signs Temp 98.2 F 05/02/21 07:14 Pulse 72 05/02/21 08:18 Resp 16 05/02/21 08:18 BP 160/82 05/02/21 07:14 Pulse Ox 96 05/02/21 08:18 05/01/21 05/02/21 05/02/21 22:59 06:59 14:59 Intake Total 595 / 655 Output Total 250 / 250 Balance 595 / 655 -250 / 405 Physical Exam Narrative: EXAM NARRATIVE: General exam no distress Neck is supple Cardiovascular regular rate and rhythm Lungs clear Abdomen is soft Extremities no cyanosis clubbing or edema Neuro: Left dense hemiparesis, left facial droop. Speech and level of alertness significantly improved. No changes today Data : 05/01/21 09:00 05/02/21 05:31 A&P Assessment and plan (1) Stroke: Continue Plavix, aspirin, statin Encourage smoking abstinence She is maintaining hydration orally, without IV fluids BUDDY was performed and no intracardiac thrombus No evidence of arrhythmia currently Status: Acute (2) Left carotid artery occlusion: No intervention warranted Status: Acute (3) Diabetes mellitus type 2 in nonobese: Sliding scale insulin Consistent carb diet Initiate Lantus, just 5 units at night initially. Candidate for metformin on discharge. Status: Acute (4) Hypertension: Continue metoprolol low-dose Lisinopril 10 mg daily. Blood pressure is acceptable post CVA, with systolic around 160. Permissive hypertension was allowed in the first 48 hours. Status: Acute Additional A&P Information Hypokalemia, supplemented orally. Check magnesium level. Allow natural Lovenox for DVT prophylaxis Attestations Medical Necessity Statement*: Awaiting placement Coding Level of Care Code Acute Pediatric Allergist for [facility] Fwd Diagnoses Stroke I63.9 Left carotid artery occlusion I65.22 Diabetes mellitus type 2 in nonobese E11.9 Hypertension I10
[2021-05-02 13:53] LABS: Glucose Point of Care 233 mg/dL (70-110)
[2021-05-02] MEDS: enoxaparin 40 mg/0.4 mL Syringe SUBCUT (19:19)
[2021-05-02 21:32] LABS: Glucose Point of Care 178 mg/dL (70-110)
[2021-05-02 21:52] LABS: Glucose Point of Care 159 mg/dL (70-110)
[2021-05-02] MEDS: insulin glargine 100 units/1 mL 5 UNIT SUBCUT (21:52)
[2021-05-02] MEDS: atorvastatin 40 mg Tablet PO (21:53)
[2021-05-03] VITALS (8 sets, daily range): BP systolic 134–177; BP diastolic 68–82; PULSE 56–76; RESP 15–20; TEMP 36.7–37.6; O2SAT 94–97
--- NOTE | 2021-05-03 04:50 | PC.NURSE ---
2000 pt awake in bed requesting multiple times to get up and go to her room. Attenpted to reorient pt, unsuccessful. Pt reports tenderness when nurse moves left upper ext. Left arm flaccid. LEFT leg min movement. water given to drink. Tolerates well.
--- NOTE | 2021-05-03 04:52 | PC.NURSE ---
2200 Pt restless, tearful. Says her left side is numb. HX CVA.
--- NOTE | 2021-05-03 04:53 | PC.NURSE ---
2300 Repositioned pt in bed. Incontinent of bladder. voids x 3 in briefs. Pericare given. Brief changed.
--- NOTE | 2021-05-03 04:54 | PC.NURSE ---
0300 brief changed when turning pt. Incontinent of bladder.
[2021-05-03 05:31] LABS: Anion Gap 17.4 (5-19); Blood Urea Nitrogen 13 mg/dL (8-23); Calcium 8.1 mg/dL (8.5-10.5); Carbon Dioxide 24 mmol/L (22-29); Chloride 105 mmol/L (98-107); Glomerular Filtration Rate 161.2 mL/min (90-130); Glucose 156 mg/dL (65-115); Osmolality Calculated 299 mOsm/kg (285-295); Potassium 3.4 mmol/L (3.5-5.1); Sodium 143 mmol/L (136-145)
--- NOTE | 2021-05-03 05:41 | PC.NURSE ---
0530 Awake in bed. Repositioned several times. Unable to get comfortable. yells out, confused. irritable. talked with pt for a distraction. Settled down.
[2021-05-03 06:54] LABS: Glucose Point of Care 172 mg/dL (70-110)
[2021-05-03] MEDS: metoprolol tartrate 25 mg Tablet 12.5 MG PO ×2 (08:13→20:57)
[2021-05-03] MEDS: clopidogrel 75 mg Tablet PO (08:13)
[2021-05-03] MEDS: sennosides-docusate Tablet 2 TAB PO ×2 (08:13→18:36)
[2021-05-03] MEDS: lisinopril 10 mg Tablet PO (08:13)
[2021-05-03] MEDS: insulin lispro 100 unit/1 mL SUBCUT ×4 (08:13→22:08)
[2021-05-03] MEDS: aspirin 81 mg EC Tablet PO (08:13)
[2021-05-03] MEDS: famotidine 20 mg Tablet PO ×2 (08:13→18:36)
[2021-05-03] MEDS: potassium chloride ER 20 mEq Tablet 40 MEQ PO (08:13)
--- NOTE | 2021-05-03 10:10 | PM.PN ---
Subjective Subjective: Interval history: Lucila reports she is doing okay. No headache today. We are still awaiting placement. Medications: Reviewed: Yes Vitals/I&O/Wt Last Vital Signs Temp 98.6 F 05/03/21 08:22 Pulse 60 05/03/21 09:37 Resp 16 05/03/21 09:37 BP 170/81 05/03/21 08:22 Pulse Ox 94 05/03/21 09:37 05/02/21 05/03/21 05/03/21 22:59 06:59 14:59 Intake Total 200 / 560 200 / 760 Balance 200 / 560 200 / 760 Physical Exam Narrative: EXAM NARRATIVE: General exam no distress Neck is supple Cardiovascular regular rate and rhythm Lungs clear Abdomen is soft Extremities no cyanosis clubbing or edema Neuro: Left dense hemiparesis, left facial droop. No changes are noted Data : 05/01/21 09:00 05/03/21 04:25 A&P Assessment and plan (1) Stroke: Continue Plavix, aspirin, statin Encourage smoking abstinence She is maintaining hydration orally, without IV fluids BUDDY was performed and no intracardiac thrombus No evidence of arrhythmia currently Status: Acute (2) Left carotid artery occlusion: No intervention warranted Status: Acute (3) Diabetes mellitus type 2 in nonobese: Sliding scale insulin Consistent carb diet continue Lantus, just 5 units at night initially. Candidate for metformin on discharge. Status: Acute (4) Hypertension: Continue metoprolol low-dose Lisinopril 10 mg daily. Blood pressure acceptable currently. Permissive hypertension was allowed in the first 48 hours. Status: Acute Additional A&P Information Hypokalemia, supplement again today. Magnesium level was checked yesterday and normal. Allow natural Lovenox for DVT prophylaxis awaiting placement Attestations Medical Necessity Statement*: Awaiting placement for skilled therapy in this patient with dense hemiparesis, family unable to care for at home. Coding Level of Care Code Acute Collection Development Librarian for [facility] Diagnoses Stroke I63.9 Left carotid artery occlusion I65.22 Diabetes mellitus type 2 in nonobese E11.9 Hypertension I10
[2021-05-03 12:18] LABS: Glucose Point of Care 276 mg/dL (70-110)
[2021-05-03] MEDS: acetaminophen 325 mg Tablet 650 MG PO (13:16)
[2021-05-03 17:14] LABS: Glucose Point of Care 157 mg/dL (70-110)
[2021-05-03] MEDS: enoxaparin 40 mg/0.4 mL Syringe SUBCUT (18:36)
[2021-05-03] MEDS: trazodone 100 mg Tablet PO (20:57)
[2021-05-03] MEDS: atorvastatin 40 mg Tablet PO (20:57)
[2021-05-03 22:00] LABS: Glucose Point of Care 182 mg/dL (70-110)
[2021-05-03] MEDS: insulin glargine 100 units/1 mL 5 UNIT SUBCUT (22:08)
[2021-05-04] VITALS (8 sets, daily range): BP systolic 120–181; BP diastolic 63–77; PULSE 51–88; RESP 16–22; TEMP 36.7–36.9; O2SAT 92–98
[2021-05-04] MEDS: acetaminophen 325 mg Tablet 650 MG PO ×2 (05:44→10:26)
[2021-05-04 06:48] LABS: Glucose Point of Care 185 mg/dL (70-110)
--- NOTE | 2021-05-04 09:07 | PM.PN ---
Documented by User: TORIE Lopez STDFELICITAS 05/04/21 09:15 Subjective Subjective: Interval history: Lucila was sitting up and eating breakfast with some assistance this morning. She wishes she could move around more and was able to sit in a chair yesterday for 3 hours. She no longer has a headache. Per nurse, she got around 4hrs of sleep last night after taking trazodone. She states that her speech is alot better. Vitals/I&O/Wt Last Vital Signs Temp 98.2 F 05/04/21 07:45 Pulse 60 05/04/21 07:48 Resp 16 05/04/21 07:48 BP 125/63 05/04/21 07:45 Pulse Ox 94 05/04/21 07:48 05/03/21 05/04/21 05/04/21 22:59 06:59 14:59 Intake Total 360 / 360 0 / 360 Balance 360 / 360 0 / 360 Physical Exam Narrative: EXAM NARRATIVE: General: in no acute distress, sitting up eating breakfast HEENT: normocephalic, atraumatic, oropharynx clear Cardiovascular: RRR without murmurs Lungs: clear, no wheezing Abdomen: soft, nontender, nondistended Extremities: no cyanosis, clubbing, or edema Neuro: dense left hemiparesis noted, left facial droop present Data : 05/01/21 09:00 05/03/21 04:25 A&P Additional A&P Information (1) Stroke: Continue Plavix, aspirin, statin Encourage smoking abstinence She is maintaining hydration orally, without IV fluids BUDDY was performed and no intracardiac thrombus No evidence of arrhythmia currently Dysphagia level II ground diet Status: Acute (2) Left carotid artery occlusion: No intervention warranted Status: Acute (3) Diabetes mellitus type 2 in nonobese: Sliding scale insulin Continue Lantus, just 5 units at night initially. Candidate for metformin on discharge. Status: Acute (4) Hypertension: Continue metoprolol low-dose Lisinopril 10 mg daily. Blood pressure acceptable currently. Permissive hypertension was allowed in the first 48 hours. Status: Acute Allow natural Lovenox for DVT prophylaxis Awaiting placement Coding Level of Care Code Acute Residential Life Director for [facility] Fwd Documented by User: Javy Beyer MD 05/04/21 09:26 Subjective Subjective: Interval history: Agree with above. Did sleep a little bit better according to the patient. Agreeable to continue trazodone. Medications: Reviewed: Yes Physical Exam Narrative: EXAM NARRATIVE: No changes needed. I examined the patient as well. Data : 05/01/21 09:00 05/03/21 04:25 A&P Additional A&P Information Agree with above. No changes needed. Awaiting rehabilitation. No need for laboratory tomorrow. Will increase Lantus to 10 units. Attestations Medical Necessity Statement*: Needs continued hospitalization, awaiting placement for CVA with significant hemiparesis. Coding Level of Care Code Acute Residential Life Director for [facility]
[2021-05-04] MEDS: insulin lispro 100 unit/1 mL SUBCUT ×3 (10:22→21:53)
[2021-05-04] MEDS: aspirin 81 mg EC Tablet PO (10:23)
[2021-05-04] MEDS: lisinopril 10 mg Tablet PO (10:23)
[2021-05-04] MEDS: famotidine 20 mg Tablet PO ×2 (10:23→18:57)
[2021-05-04] MEDS: sennosides-docusate Tablet 2 TAB PO ×2 (10:23→18:57)
[2021-05-04] MEDS: clopidogrel 75 mg Tablet PO (10:24)
[2021-05-04] MEDS: metoprolol tartrate 25 mg Tablet 12.5 MG PO ×2 (10:24→20:42)
[2021-05-04] MEDS: artificial tears Op Soln 15 mL Btl 1 DROP EYE-BOTH (12:09)
--- NOTE | 2021-05-04 13:38 | PC.OT ---
OT tx attempted at this time. Pt is in bed snoring. Pt's daughter present and reports her mother did not sleep last night and has received medication. Therapist will attempt tx again later today if possible.
[2021-05-04 13:56] LABS: Glucose Point of Care 226 mg/dL (70-110)
--- NOTE | 2021-05-04 14:32 | PC.CHAP ---
Pastoral Care Encounter/Spiritual Assessment Type of Contact [] Declined parking lot signaler visit [] Patient/Family/Request visit [] Outpatient visit [xx] Follow-up visit [] Physician referral [] Code/Alert [] Routine visit [] Staff referral [] Actively dying [] Patient sleeping [] Family support [] [] Out of room [] Palliative care [] [xx] Receiving care in room [] Pre-surgical visit [] Trauma [xx] Long length of stay [] ICU visit [] Other: Relational/Emotional Strength [] Patient feels connected with others/family/visitors/staff [] Distress [] Loneliness/isolation [] Abandonment Spirituality of Patient [] Person of Kathy [] Attends Yazdanism of their Kathy [] Believes in Prayer [] Reads Bible or Anglican materials [] There are Spiritual issues to be addressed Character Impersonator Interventions [] Prayer [] Active listening [] Non-anxious presence [] Spiritual/emotional support [] Crisis/trauma care [] Spiritual counseling [] Bereavement support [] Provided bereavement packet [] Provided Bible/devotional materials [] Provided toy/stuffed animal, coloring book to patient or family member [] Provided Communion [] Anointing/[place] [] Salvation [] Completed spiritual assessment [] Other: Impact on Illness or Injury [] Angry [] Fearful [] Anxious [] Often cries [] Exhaustion [] Unable to work [] Unable to attend caodaism [] Unable to walk/stand [] Unable to read [] Unable to drive [] Unable to eat/drink [] Unable to sleep [] Unable to be with family [] Patient intubated [] Other: Summary Attempt follow up again. Multiple staff members were with her for various purposes. Time spent with patient
[2021-05-04 16:55] LABS: Glucose Point of Care 102 mg/dL (70-110)
[2021-05-04] MEDS: enoxaparin 40 mg/0.4 mL Syringe SUBCUT (18:57)
[2021-05-04] MEDS: atorvastatin 40 mg Tablet PO (20:42)
[2021-05-04] MEDS: trazodone 100 mg Tablet PO (20:43)
[2021-05-04 21:15] LABS: Glucose Point of Care 222 mg/dL (70-110)
[2021-05-04] MEDS: insulin glargine 100 units/1 mL 10 UNIT SUBCUT (21:53)
[2021-05-05] VITALS (8 sets, daily range): BP systolic 108–150; BP diastolic 55–80; PULSE 59–72; RESP 16–19; TEMP 36.4–37.1; O2SAT 92–97
[2021-05-05 06:32] LABS: Glucose Point of Care 178 mg/dL (70-110)
[2021-05-05] MEDS: metoprolol tartrate 25 mg Tablet 12.5 MG PO ×2 (09:11→20:03)
[2021-05-05] MEDS: famotidine 20 mg Tablet PO ×2 (09:11→18:02)
[2021-05-05] MEDS: aspirin 81 mg EC Tablet PO (09:11)
[2021-05-05] MEDS: sennosides-docusate Tablet 2 TAB PO ×2 (09:11→18:01)
[2021-05-05] MEDS: lisinopril 10 mg Tablet PO (09:11)
[2021-05-05] MEDS: clopidogrel 75 mg Tablet PO (09:11)
--- NOTE | 2021-05-05 09:53 | P.PN_ITS ---
Subjective Subjective: Interval history: Lucila reports she is doing okay. She slept last night. Has a mild headache today. Medications: Reviewed: Yes Vitals/I&O/Wt Last Vital Signs Temp 98 F 05/05/21 07:28 Pulse 62 05/05/21 08:56 Resp 16 05/05/21 08:56 BP 150/77 05/05/21 07:28 Pulse Ox 94 05/05/21 08:56 05/04/21 05/05/21 05/05/21 22:59 06:59 14:59 Intake Total 300 / 480 320 / 800 Balance 300 / 480 320 / 800 Physical Exam Narrative: EXAM NARRATIVE: General exam no distress Neck is supple Cardiovascular regular rate and rhythm without murmur Lungs clear Abdomen is soft Extremities no cyanosis clubbing or edema Data : 05/01/21 09:00 05/03/21 04:25 A&P Assessment and plan (1) Stroke: Continue Plavix, aspirin, statin Encourage smoking abstinence She is maintaining hydration orally, without IV fluids BUDDY was performed and no intracardiac thrombus No evidence of arrhythmia currently Status: Acute (2) Left carotid artery occlusion: No intervention warranted Status: Acute (3) Diabetes mellitus type 2 in nonobese: Sliding scale insulin Consistent carb diet Continue Lantus 10 units at night. Candidate for metformin on discharge. Status: Acute (4) Hypertension: Continue metoprolol low-dose Lisinopril 10 mg daily. Blood pressure acceptable currently. Permissive hypertension was allowed in the first 48 hours. Status: Acute Additional A&P Information Lovenox for DVT prophylaxis Await placement Attestations Medical Necessity Statement*: Needs continued hospitalization for severe CVA, pending placement. Coding Level of Care Code Acute Auxiliary Equipment Tender for [facility] Diagnoses Stroke I63.9 Left carotid artery occlusion I65.22 Diabetes mellitus type 2 in nonobese E11.9 Hypertension I10
[2021-05-05 11:35] LABS: Glucose Point of Care 245 mg/dL (70-110)
[2021-05-05] MEDS: insulin lispro 100 unit/1 mL SUBCUT ×3 (13:17→21:39)
[2021-05-05 17:27] LABS: Glucose Point of Care 179 mg/dL (70-110)
[2021-05-05] MEDS: acetaminophen 325 mg Tablet 650 MG PO (18:01)
[2021-05-05] MEDS: enoxaparin 40 mg/0.4 mL Syringe SUBCUT (18:02)
[2021-05-05] MEDS: trazodone 100 mg Tablet PO (20:03)
[2021-05-05] MEDS: atorvastatin 40 mg Tablet PO (20:03)
[2021-05-05 20:58] LABS: Glucose Point of Care 182 mg/dL (70-110)
[2021-05-05] MEDS: insulin glargine 100 units/1 mL 10 UNIT SUBCUT (21:38)
[2021-05-06] VITALS (7 sets, daily range): BP systolic 109–162; BP diastolic 60–83; PULSE 50–65; RESP 16–20; TEMP 36.7–37; O2SAT 94–98
[2021-05-06 06:27] LABS: Glucose Point of Care 172 mg/dL (70-110)
[2021-05-06] MEDS: insulin lispro 100 unit/1 mL SUBCUT ×3 (08:49→21:39)
[2021-05-06] MEDS: famotidine 20 mg Tablet PO ×2 (08:50→17:31)
[2021-05-06] MEDS: clopidogrel 75 mg Tablet PO (08:50)
[2021-05-06] MEDS: sennosides-docusate Tablet 2 TAB PO ×2 (08:50→17:30)
[2021-05-06] MEDS: aspirin 81 mg EC Tablet PO (08:50)
[2021-05-06] MEDS: lisinopril 10 mg Tablet PO (08:50)
[2021-05-06] MEDS: metoprolol tartrate 25 mg Tablet 12.5 MG PO ×2 (08:50→20:21)
[2021-05-06] MEDS: acetaminophen 325 mg Tablet 650 MG PO ×2 (08:51→20:22)
--- NOTE | 2021-05-06 09:13 | PM.PN ---
Subjective Subjective: Interval history: Lucila reports she is doing okay. No events overnight. Trying to keep up on her fluids. Medications: Reviewed: Yes Vitals/I&O/Wt Last Vital Signs Temp 98.0 F 05/06/21 07:46 Pulse 65 05/06/21 07:46 Resp 18 05/06/21 07:46 BP 151/80 05/06/21 07:46 Pulse Ox 96 05/06/21 07:46 05/05/21 05/06/21 05/06/21 22:59 06:59 14:59 Intake Total 0 / 400 200 / 600 Output Total 0 / 0 Balance 0 / 400 200 / 600 Physical Exam Narrative: EXAM NARRATIVE: General exam no distress Neck is supple Cardiovascular regular rate and rhythm without murmur Lungs clear Abdomen is soft Extremities no cyanosis clubbing or edema Data : 05/01/21 09:00 05/03/21 04:25 A&P Assessment and plan (1) Stroke: Continue Plavix, aspirin, statin Encourage smoking abstinence She is maintaining hydration orally, without IV fluids BUDDY was performed and no intracardiac thrombus No evidence of arrhythmia currently Status: Acute (2) Left carotid artery occlusion: No intervention warranted Status: Acute (3) Diabetes mellitus type 2 in nonobese: Sliding scale insulin Consistent carb diet Continue Lantus 10 units at night. Candidate for metformin on discharge. Status: Acute (4) Hypertension: Continue metoprolol low-dose Lisinopril 10 mg daily. Blood pressure acceptable currently Status: Acute Additional A&P Information Lovenox for DVT prophylaxis Await placement Attestations Medical Necessity Statement*: Needs continued hospitalization awaiting placement Coding Level of Care Code Acute Custom Decorating Consultant for [facility] Diagnoses Stroke I63.9 Left carotid artery occlusion I65.22 Diabetes mellitus type 2 in nonobese E11.9 Hypertension I10
--- NOTE | 2021-05-06 09:36 | PC.CHAP ---
Pastoral Care Encounter/Spiritual Assessment Type of Contact [] Declined church official visit [] Patient/Family/Request visit [] Outpatient visit [] Follow-up visit [] Physician referral [] Code/Alert [x] Routine visit [] Staff referral [] Actively dying [] Patient sleeping [] Family support [] [] Out of room [] Palliative care [] [] Receiving care in room [] Pre-surgical visit [] Trauma [] Long length of stay [] ICU visit [] Other: Relational/Emotional Strength [x] Patient feels connected with others/family/visitors/staff [] Distress [] Loneliness/isolation [] Abandonment Spirituality of Patient [x] Person of Kathy [] Attends Restoration of their Kathy [x] Believes in Prayer [] Reads Bible or Methodist materials [] There are Spiritual issues to be addressed Assembler Molded Frames Interventions [x] Prayer [x] Active listening [x] Non-anxious presence [x] Spiritual/emotional support [] Crisis/trauma care [] Spiritual counseling [] Bereavement support [] Provided bereavement packet [] Provided Bible/devotional materials [] Provided toy/stuffed animal, coloring book to patient or family member [] Provided Communion [] Anointing/[place] [] Salvation [x] Completed spiritual assessment [] Other: Impact on Illness or Injury [] Angry [] Fearful [] Anxious [] Often cries [] Exhaustion [] Unable to work [] Unable to attend mormon [] Unable to walk/stand [] Unable to read [] Unable to drive [] Unable to eat/drink [] Unable to sleep [] Unable to be with family [] Patient intubated [] Other: Summary Assembler Molded Frames prayed with patient. Time spent with patient 8 minutes.
[2021-05-06 17:06] LABS: Glucose Point of Care 240 mg/dL (70-110)
[2021-05-06] MEDS: enoxaparin 40 mg/0.4 mL Syringe SUBCUT (17:30)
[2021-05-06] MEDS: atorvastatin 40 mg Tablet PO (20:21)
[2021-05-06] MEDS: trazodone 100 mg Tablet PO (20:21)
[2021-05-06] MEDS: insulin glargine 100 units/1 mL 10 UNIT SUBCUT (21:39)
[2021-05-06 21:42] LABS: Glucose Point of Care 163 mg/dL (70-110)
[2021-05-07] VITALS (7 sets, daily range): BP systolic 117–170; BP diastolic 67–89; PULSE 55–77; RESP 16–18; TEMP 36.7–36.9; O2SAT 91–97
[2021-05-07 06:42] LABS: Glucose Point of Care 190 mg/dL (70-110)
[2021-05-07] MEDS: aspirin 81 mg EC Tablet PO (07:42)
[2021-05-07] MEDS: famotidine 20 mg Tablet PO ×2 (07:42→16:41)
[2021-05-07] MEDS: insulin lispro 100 unit/1 mL SUBCUT ×3 (07:42→16:41)
[2021-05-07] MEDS: metoprolol tartrate 25 mg Tablet 12.5 MG PO ×2 (07:42→20:25)
[2021-05-07] MEDS: clopidogrel 75 mg Tablet PO (07:42)
[2021-05-07] MEDS: lisinopril 10 mg Tablet PO (07:42)
[2021-05-07] MEDS: sennosides-docusate Tablet 2 TAB PO ×2 (07:42→16:41)
[2021-05-07 11:14] LABS: Glucose Point of Care 269 mg/dL (70-110)
[2021-05-07] MEDS: acetaminophen 325 mg Tablet 650 MG PO ×2 (11:47→23:52)
--- NOTE | 2021-05-07 12:43 | P.PN_ITS ---
Subjective Subjective: Interval history: No changes. Still cannot move her left side. No pain. Medications: Reviewed: Yes Vitals/I&O/Wt Last Vital Signs Temp 98.0 F 05/07/21 07:49 Pulse 72 05/07/21 10:06 Resp 17 05/07/21 10:06 BP 170/72 05/07/21 07:49 Pulse Ox 93 05/07/21 10:06 05/06/21 05/07/21 05/07/21 22:59 06:59 14:59 Intake Total 100 / 100 Output Total 0 / 0 Balance 0 / 200 100 / 100 Physical Exam Narrative: EXAM NARRATIVE: General exam no distress Neck is supple Cardiovascular regular rate and rhythm without murmur Lungs clear Abdomen is soft Extremities no cyanosis clubbing or edema Left hemiparesis unchanged Data : 05/01/21 09:00 05/03/21 04:25 A&P Assessment and plan (1) Stroke: Continue Plavix, aspirin, statin Encourage smoking abstinence She is maintaining hydration orally, without IV fluids BUDDY was performed and no intracardiac thrombus No evidence of arrhythmia currently Status: Acute (2) Left carotid artery occlusion: No intervention warranted Status: Acute (3) Diabetes mellitus type 2 in nonobese: Sliding scale insulin Consistent carb diet Continue Lantus 10 units at night. Candidate for metformin on discharge. Status: Acute (4) Hypertension: Continue metoprolol low-dose Lisinopril 10 mg daily. Blood pressure acceptable currently Status: Acute Additional A&P Information Lovenox for DVT prophylaxis Await placement Attestations Medical Necessity Statement*: Needs continued hospitalization pending placement. Coding Level of Care Code Acute Hand Tapper for [facility] Diagnoses Stroke I63.9 Left carotid artery occlusion I65.22 Diabetes mellitus type 2 in nonobese E11.9 Hypertension I10
[2021-05-07 16:06] LABS: Glucose Point of Care 231 mg/dL (70-110)
[2021-05-07] MEDS: enoxaparin 40 mg/0.4 mL Syringe SUBCUT (16:41)
[2021-05-07] MEDS: trazodone 100 mg Tablet PO (20:25)
[2021-05-07] MEDS: atorvastatin 40 mg Tablet PO (20:25)
[2021-05-07] MEDS: insulin glargine 100 units/1 mL 10 UNIT SUBCUT (22:02)
[2021-05-07 22:08] LABS: Glucose Point of Care 135 mg/dL (70-110)
[2021-05-08 00:35] VITALS: BP 147/77; PULSE 55; RESP 16; TEMP 36.9; O2SAT 95
[2021-05-08 05:30] VITALS: BP 136/84; PULSE 65; RESP 17; TEMP 36.5; O2SAT 97
[2021-05-08 07:10] LABS: Glucose Point of Care 177 mg/dL (70-110)
[2021-05-08 08:01] VITALS: PULSE 76; RESP 18; O2SAT 95
[2021-05-08] MEDS: insulin lispro 100 unit/1 mL SUBCUT ×3 (08:08→17:08)
[2021-05-08] MEDS: sennosides-docusate Tablet 2 TAB PO ×2 (08:09→17:08)
[2021-05-08] MEDS: clopidogrel 75 mg Tablet PO (08:09)
[2021-05-08] MEDS: aspirin 81 mg EC Tablet PO (08:09)
[2021-05-08] MEDS: lisinopril 10 mg Tablet PO (08:09)
[2021-05-08] MEDS: famotidine 20 mg Tablet PO ×2 (08:09→17:08)
[2021-05-08] MEDS: metoprolol tartrate 25 mg Tablet 12.5 MG PO ×2 (08:09→21:01)
--- NOTE | 2021-05-08 09:07 | PM.PN ---
Documented by User: TORIE Lopez STDFELICITAS 05/08/21 09:14 Subjective Subjective: Interval history: Lucila has no specific complaints today. She is still unable to move her left side much. Vitals/I&O/Wt Last Vital Signs Temp 97.7 F 05/08/21 05:30 Pulse 76 05/08/21 08:01 Resp 18 05/08/21 08:01 BP 136/84 05/08/21 05:30 Pulse Ox 95 05/08/21 08:01 05/07/21 05/08/21 05/08/21 22:59 06:59 14:59 Intake Total 150 / 250 Balance 150 / 250 Physical Exam Narrative: EXAM NARRATIVE: General: in no acute distress HEENT: normocephalic, atraumatic, oropharynx clear Neck: supple Cardiovascular: RRR without murmurs Lungs: clear bilaterally, no wheezes Abdomen: soft, nontender, nondistended, positive bowel sounds Extremities: no cyanosis, clubbing, or edema Skin: no rash Neuro: dense left hemiparesis, left facial droop Data : 05/01/21 09:00 05/03/21 04:25 A&P Assessment and plan (1) Stroke: Status: Acute (2) Left carotid artery occlusion: Status: Acute (3) Diabetes mellitus type 2 in nonobese: Status: Acute (4) Hypertension: Status: Acute Plan (1) Stroke: ? ? ? Continue Plavix, aspirin, statin Encourage smoking abstinence She is maintaining hydration orally, without IV fluids BUDDY was performed and no intracardiac thrombus No evidence of arrhythmia currently ?Status:?Acute (2) Left carotid artery occlusion: ? ? ? No intervention warranted ?Status:?Acute (3) Diabetes mellitus type 2 in nonobese: ? ? ? Sliding scale insulin Consistent carb diet Continue Lantus 10 units at night.? Candidate for metformin on discharge. ?Status:?Acute (4) Hypertension: ? ? ? 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 She is still unable to move her left side much. Agree with above. Patient reports no complaints. Medications: Reviewed: Yes Physical Exam Narrative: EXAM NARRATIVE: General: in no acute distress HEENT: normocephalic, atraumatic, oropharynx clear Neck: supple Cardiovascular: RRR without murmurs Lungs: clear bilaterally, no wheezes Abdomen: soft, nontender, nondistended, positive bowel sounds Extremities: no cyanosis, clubbing, or edema Skin: no rash Neuro: dense left hemiparesis, left facial droop No changes, agree with above. Data : 05/01/21 09:00 05/03/21 04:25 A&P Assessment and plan (1) Stroke: Status: Acute (2) Left carotid artery occlusion: Status: Acute (3) Diabetes mellitus type 2 in nonobese: Status: Acute (4) Hypertension: Status: Acute Plan (1) Stroke: ? ? ? Continue Plavix, aspirin, statin Encourage smoking abstinence She is maintaining hydration orally, without IV fluids BUDDY was performed and no intracardiac thrombus No evidence of arrhythmia currently ?Status:?Acute (2) Left carotid artery occlusion: ? ? ? No intervention warranted ?Status:?Acute (3) Diabetes mellitus type 2 in nonobese: ? ? ? Sliding scale insulin Consistent carb diet Continue Lantus 10 units at night.? Candidate for metformin on discharge. ?Status:?Acute (4) Hypertension: ? ? ? Continue metoprolol low-dose Continue lisinopril 10mg daily Blood pressure acceptable currently ?Status:?Acute Lovenox for DVT prophylaxis Awaiting placement Above note reviewed in detail. No changes needed. Awaiting placement. Attestations Medical Necessity Statement*: Needs continued hospitalization pending placement. 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
--- NOTE | 2021-05-08 10:19 | PC.CHAP ---
Pastoral Care Encounter/Spiritual Assessment Type of Contact [] Declined floor sander visit [] Patient/Family/Request visit [] Outpatient visit [] Follow-up visit [] Physician referral [] Code/Alert [x] Routine visit [] Staff referral [] Actively dying [] Patient sleeping [] Family support [] [] Out of room [] Palliative care [] [] Receiving care in room [] Pre-surgical visit [] Trauma [] Long length of stay [] ICU visit [] Other: Relational/Emotional Strength [] Patient feels connected with others/family/visitors/staff [] Distress [] Loneliness/isolation [] Abandonment Spirituality of Patient [] Person of Kathy [] Attends Moravian of their Kathy [] Believes in Prayer [] Reads Bible or Taoist materials [] There are Spiritual issues to be addressed [employer] Interventions [] Prayer [x] Active listening [x] Non-anxious presence [x] Spiritual/emotional support [] Crisis/trauma care [] Spiritual counseling [] Bereavement support [] Provided bereavement packet [] Provided Bible/devotional materials [] Provided toy/stuffed animal, coloring book to patient or family member [] Provided Communion [] Anointing/[place] [] Salvation [] Completed spiritual assessment [] Other: Impact on Illness or Injury [] Angry [] Fearful [] Anxious [] Often cries [] Exhaustion [] Unable to work [] Unable to attend holiness [] Unable to walk/stand [] Unable to read [] Unable to drive [] Unable to eat/drink [] Unable to sleep [] Unable to be with family [] Patient intubated [] Other: Summary As floor sander entered room to speak with room mate, Pt was asleep. [employer] introduced self to room mate and stated floor sander would try to speak softly so not to wake Pt. The Pt. stated, I'm awake . Developer [employer] visited with room mate who received a call for Pt. Assisted Pt in locating phone. [employer] continued to speak with room mate and concluded the interview with prayer. As floor sander was praying, Pt began to weep. Upon concluding the prayer, floor sander spoke with patient. She indicated she did not want to speak with floor sander today but did want to see one tomorrow. She did not want prayer today. Time spent with patient 5m
[2021-05-08 11:27] LABS: Glucose Point of Care 279 mg/dL (70-110)
[2021-05-08] MEDS: acetaminophen 325 mg Tablet 650 MG PO (11:44)
[2021-05-08 17:04] LABS: Glucose Point of Care 265 mg/dL (70-110)
[2021-05-08] MEDS: enoxaparin 40 mg/0.4 mL Syringe SUBCUT (17:08)
[2021-05-08 20:53] VITALS: BP 162/78; PULSE 63; RESP 18; TEMP 36.9; O2SAT 98
[2021-05-08] MEDS: insulin glargine 100 units/1 mL 10 UNIT SUBCUT (21:00)
[2021-05-08] MEDS: atorvastatin 40 mg Tablet PO (21:00)
[2021-05-08] MEDS: trazodone 100 mg Tablet PO (21:01)
[2021-05-08 22:01] LABS: Glucose Point of Care 139 mg/dL (70-110)
[2021-05-09] VITALS: BP 155/59; PULSE 61; RESP 16; TEMP 36.8; O2SAT 97
[2021-05-09 04:00] VITALS: BP 130/72; PULSE 68; RESP 18; TEMP 36.4; O2SAT 92
[2021-05-09 05:49] LABS: Basophils # 0.1 10^3/uL (0.0-0.1); Basophils % 0.9 %; Eosinophils # 0.2 10^3/uL (0.0-0.8); Eosinophils % 2.5 %; Hematocrit 39.9 % (37.0-47.0); Hemoglobin 14.1 g/dL (11.5-15.3); Lymphocytes # 1.6 10^3/uL (0.8-4.8); Lymphocytes % 19.9 %; Mean Corpuscular HGB Conc 35.3 g/dL (30.0-36.0); Mean Corpuscular Hemoglobin 30.1 pg (28.0-34.0); Mean Corpuscular Volume 85.3 fl (81-99); Monocytes # 0.9 10^3/uL (0.2-0.9); Monocytes % 10.6 %; Neutrophils # 5.37 10^3/uL (1.8-7.7); Neutrophils % 65.9 %; Nucleated Red Blood Cells % 0 %; Platelet Count 417 10^3/cmm (130-400); Red Blood Count 4.68 10^6/uL (4.1-5.3); White Blood Count 8.1 10^3/uL (4.0-10.0)
[2021-05-09 06:08] LABS: Anion Gap 16.5 (5-19); Blood Urea Nitrogen 12 mg/dL (8-23); Calcium 9.3 mg/dL (8.5-10.5); Carbon Dioxide 23 mmol/L (22-29); Chloride 103 mmol/L (98-107); Glomerular Filtration Rate 124.6 mL/min (90-130); Glucose 184 mg/dL (65-115); Osmolality Calculated 293 mOsm/kg (285-295); Potassium 3.5 mmol/L (3.5-5.1); Sodium 139 mmol/L (136-145)
[2021-05-09 08:00] VITALS: BP 109/67; PULSE 96; RESP 18; TEMP 36.8; O2SAT 95
[2021-05-09 09:20] VITALS: PULSE 99; RESP 17; O2SAT 92
[2021-05-09] MEDS: insulin lispro 100 unit/1 mL SUBCUT (09:34)
[2021-05-09] MEDS: aspirin 81 mg EC Tablet PO (09:35)
[2021-05-09] MEDS: lisinopril 10 mg Tablet PO (09:35)
[2021-05-09] MEDS: clopidogrel 75 mg Tablet PO (09:35)
[2021-05-09] MEDS: famotidine 20 mg Tablet PO (09:35)
[2021-05-09] MEDS: sennosides-docusate Tablet 2 TAB PO (09:35)
[2021-05-09] MEDS: metoprolol tartrate 25 mg Tablet 12.5 MG PO (09:39)
--- NOTE | 2021-05-09 09:42 | P.DS_ITS ---
Discharge Providers Date of Admission: 04/25/21 12:19 Date of Discharge: May 09, 2021 Attending Provider at Admission: Javy Beyer MD Attending Provider at Discharge: Javy Beyer MD Diagnoses at Discharge Discharge Diagnosis (1) Stroke: Status: Acute (2) Left carotid artery occlusion: Status: Acute (3) Diabetes mellitus type 2 in nonobese: Status: Acute (4) Hypertension: Status: Acute Reason for Visit Reason for Visit: STROKE ALERT Hospital Course Hospital Course Rosanne is a 65-year-old white female who presented with left-sided weakness. She had a previous stroke on March 15, got placed on Plavix aspirin and statin, and had eventually run out of her medications and did not keep follow-up. She had known significant carotid atherosclerotic disease, with left carotid occlusion. CTA neck showed the same, with suspected short segment dissection with stenosis right common carotid around 65%. Neurology saw her in the emergency department and she was not a candidate for TPA. She was placed on Plavix, aspirin, and high-dose statin. Throughout her hospital stay she became more alert, and tolerated a level 3 dysphagia diet. BUDDY was performed which d emonstrated no thrombus. Telemetry was in place her entire hospital stay from April 25 through discharge on May 09 to skilled care at [facility]. No arrhythmias were noted. She will follow-up with neurology in approximately 2 weeks, and the physician at rehabilitation. Lantus was added to her regimen secondary to diabetes as well as a sliding scale. Head CT demonstrated CVA right cerebellum, right middle cerebellar peduncle, right savannah without hemorrhage. Deficit on discharge was dense left hemiparesis. Physical Exam Narrative: EXAM NARRATIVE: General exam no distress Neck is supple Cardiovascular regular in rhythm Lungs clear Abdomen soft Extremities no cyanosis clubbing or edema Neurologic dense left hemiparesis Discharge Data Studies Completed and Pending Completed Studies During Hospitalization Category Date Time Status CT angio headneck* [id number] Stat Cat Scan 04/25/21 10:[address] head wo con* [id number] Stat Cat Scan 05/01/21 15:[address] head wo con* [id number] Urgent Cat Scan 04/25/21 Completed CV. echo transesophageal [id number] Routine Ultrasound 04/27/21 12:00 Completed Radiology Impressions Head/Neck CTA 04/25/21 10:02 IMPRESSION: 1. New progressed stenosis in the right common carotid artery in the lower neck with eccentric ulcerated irregular plaque and suspected short segment dissection with stenosis measuring 65%. Right common carotid artery is patent to the bifurcation. Right ICA is patent to the skull base. 2. Left common carotid artery is occluded just distal to the origin unchanged from previous. 50% left ICA stenosis is unchanged. 3. Right dominant vertebral artery. Both vertebral arteries are patent. 4. No flow-limiting intracranial stenosis. Persistent left [employer]. 5. Slightly decreased cortical flow to the area of suspected subacute ischemia in the left parasagittal occipital lobe. This can be followed up with MRI. 6. Stable more chronic appearing infarct in the left parietal lobe. Attempted notification Armani Ross DO at 04/25/2021 11:[address] 05/01/21 15:14 IMPRESSION: 1. Interval development since 04/25/2021 of acute to subacute infarcts involving portion of the RIGHT cerebellum, RIGHT middle cerebellar peduncle and RIGHT savannah. No hemorrhage. 2. This study is not adequate to evaluate for thrombus within the vertebral or basilar arteries or branches due to motion artifact and artifact from the skull base. 3. The additional areas of decreased attenuation throughout the brain are stable. Notified Javy Beyer MD at 05/01/2021 3:59 PM. Laboratory Results WBC 8.1 10^3/uL (4.0-10.0) 05/09/21 04:55 Corrected WBC Cancelled 05/01/21 05:36 RBC 4.68 10^6/uL (4.1-5.3) 05/09/21 04:55 Hgb 14.1 g/dL (11.5-15.3) 05/09/21 04:55 Hct 39.9 % (37.0-47.0) 05/09/21 04:55 MCV 85.3 fl (81-99) 05/09/21 04:55 MCH 30.1 pg (28.0-34.0) 05/09/21 04:55 MCHC 35.3 g/dL (30.0-36.0) 05/09/21 04:55 RDW 12.0 % (12.1-15.1) L 05/09/21 04:55 Plt Count 417 10^3/cmm (130-400) H 05/09/21 04:55 MPV 11.0 fL (7.4-10.4) H 05/09/21 04:55 Gran % Cancelled 05/01/21 05:36 Neut % (Auto) 65.9 % 05/09/21 04:55 Lymph % (Auto) 19.9 % 05/09/21 04:55 [place] % (Auto) 10.6 % 05/09/21 04:55 Eos % (Auto) 2.5 % 05/09/21 04:55 Baso % (Auto) 0.9 % 05/09/21 04:55 Neut # (Auto) 5.37 10^3/uL (1.8-7.7) 05/09/21 04:55 Lymph # (Auto) 1.6 10^3/uL (0.8-4.8) 05/09/21 04:55 [place] # (Auto) 0.9 10^3/uL (0.2-0.9) 05/09/21 04:55 Eos # (Auto) 0.2 10^3/uL (0.0-0.8) 05/09/21 04:55 Baso # (Auto) 0.1 10^3/uL (0.0-0.1) 05/09/21 04:55 Absolute Gran (auto) Cancelled 05/01/21 05:36 Nucleated RBC % (auto) 0 % 05/09/21 04:55 Nucleated RBCs # 0.0 /100WBC 05/09/21 04:55 PT 12.90 SECONDS (12.1-14.9) 04/25/21 10:13 INR 0.95 (0.8-1.2) 04/25/21 10:13 APTT 19.9 SECONDS (23.9-36.7) L 04/25/21 10:13 Sodium 139 mmol/L (136-145) 05/09/21 04:55 Potassium 3.5 mmol/L (3.5-5.1) 05/09/21 04:55 Chloride 103 mmol/L (98-107) 05/09/21 04:55 Carbon Dioxide 23 mmol/L (22-29) 05/09/21 04:55 Anion Gap 16.5 (5-19) 05/09/21 04:55 BUN 12 mg/dL (8-23) 05/09/21 04:55 Creatinine 0.5 mg/dL (0.5-0.9) 05/09/21 04:55 GFR Calculation 124.6 mL/min (90-130) 05/09/21 04:55 Glucose 184 mg/dL (65-115) H 05/09/21 04:55 POC Glucose 139 mg/dL (70-110) H 05/08/21 21:40 Estimat Average Glucose 249 04/26/21 05:12 Hemoglobin A1c 10.3 % (4.0-6.0) H 04/26/21 05:12 Calculated Osmolality 293 mOsm/kg (285-295) 05/09/21 04:55 Calcium 9.3 mg/dL (8.5-10.5) 05/09/21 04:55 Magnesium 1.8 mg/dL (1.7-2.3) 05/02/21 05:31 Total Bilirubin 0.6 mg/dL (0.15-1.2) 04/25/21 10:13 AST 13 U/L (0-32) 04/25/21 10:13 ALT 16 U/L (0-33) 04/25/21 10:13 Alkaline Phosphatase 95 IU/L (35-105) 04/25/21 10:13 Troponin T Gen 5 ng/L 25 ng/L (0-10) H 04/25/21 17:49 Troponin T Baseline 16 ng/L (0-10) H 04/25/21 10:13 Total Protein 7.3 g/dL (6.6-8.7) 04/25/21 10:13 Albumin 4.6 g/dL (3.5-5.2) 04/25/21 10:13 Globulin 2.7 g/dL (1.3-4.6) 04/25/21 10:13 Urine Color Yellow (Yellow) 04/25/21 13:01 Urine Appearance Clear (CLEAR) 04/25/21 13:01 Urine pH 5 (5-7) 04/25/21 13:01 Ur Specific [place] 1.010 (1.005-1.030) 04/25/21 13:01 Urine Protein Neg (Negative) 04/25/21 13:01 Urine Glucose (UA) 4+ (Normal) H 04/25/21 13:01 Urine Ketones Negative (Negative) 04/25/21 13:01 Urine Blood Neg (Negative) 04/25/21 13:01 Urine Nitrate Negative (Negative) 04/25/21 13:01 Urine Bilirubin Neg (Negative) 04/25/21 13:01 Urine Urobilinogen Norm mg/dL (Negative) 04/25/21 13:01 Ur Leukocyte Esterase Negative (Negative) 04/25/21 13:01 Urine Opiates Screen Negative ng/mL (Negative) 04/25/21 13:01 Ur Barbiturates Screen Negative ng/mL (Negative) 04/25/21 13:01 Ur Phencyclidine Scrn Negative ng/mL (Negative) 04/25/21 13:01 Ur Amphetamines Screen Negative ng/mL (Negative) 04/25/21 13:01 U Benzodiazepines Scrn Positive ng/mL (Negative) H 04/25/21 13:01 Urine Cocaine Screen Negative ng/mL (Negative) 04/25/21 13:01 U Marijuana (THC) Screen Negative ng/mL (Negative) 04/25/21 13:01 Vitals Last Vital Signs Temp 98.2 F 05/09/21 08:00 Pulse 99 05/09/21 09:20 Resp 17 05/09/21 09:20 BP 109/67 05/09/21 08:00 Pulse Ox 92 05/09/21 09:20 Discharge Plan Discharge Patient Disposition: Xfer SNF Condition: Stable Prescriptions: New insulin lispro [Humalog U-100 Insulin] 100 unit/mL Solution 0 unit SUBCUT WM&BEDTIME Qty: 100 0RF trazodone 100 mg Tablet 100 mg PO BEDTIME Qty: 30 0RF Lantus U-100 Insulin 100 unit/mL Solution 10 unit SUBCUT BEDTIME Qty: 100 0RF aspirin 81 mg Tablet,Delayed Release (Dr/Ec) 81 mg PO DAILY Qty: 30 0RF Continued atorvastatin 40 mg Tablet 40 mg PO BEDTIME Qty: 60 3RF clopidogrel 75 mg Tablet 75 mg PO DAILY Qty: 21 0RF famotidine 20 mg Tablet 20 mg PO BID Qty: 30 0RF lisinopril 10 mg tablet 10 mg PO DAILY Qty: 60 3RF metoprolol tartrate 25 mg tablet 12.5 mg PO BID Qty: 60 3RF Discontinued aspirin 325 mg Tablet,Delayed Release (Dr/Ec) 325 mg PO DAILY Qty: 60 3RF Discharge Orders: Discharge Order (Routine); Ordered 05/09/21 Ordered By: Javy Beyer Referrals: Tamia Hanna MD [Physician] - 2 weeks Discharge Diet: Diabetic Discharge Activity: Increase activity as tolerated Activity Restrictions/Additional Instructions: Dysphagia level 3 diet Discharge Attestations Time Spent in Discharge Care*: greater than 30 min Quality Metrics Clinical Quality Measures [ Cerebrovascular Accident { Contraindication to Antithrombotic: None; antithrombotic prescribed; Contraindication to Anticoagulation: Other (not indicated); Contraindication to Statin: None; Statiin prescribed; Reason stroke education not provided: Stroke education provided to patient;}] Coding Level of Care Code Acute [facility] FW DC note Diagnoses Stroke I63.9 Left carotid artery occlusion I65.22 Diabetes mellitus type 2 in nonobese E11.9 Hypertension I10
[2021-05-09 10:47] LABS: Glucose Point of Care 298 mg/dL (70-110)
--- NOTE | 2021-05-09 11:32 | PC.NURSE ---
Report called to Julieta at [facility]
[2021-05-09 11:33] VITALS: PULSE 99; RESP 17; O2SAT 92
== END 2021-05-09 11:35 | disposition swing bed (61) | DRG 65 ==
LOC: ER 12:06 → MEDSURG 15:45
PROVIDERS: Family Medicine; Internal Medicine Cardiovascular Disease; Admitting Provider Internal Medicine; Emergency Provider Family Medicine; Visit Provider Internal Medicine
PROC: B24BZZ4 Ultrasonography of Heart with Aorta, Transesophageal (ICD-10-PCS; CPT 93312; principal; 2021-04-27 12:00)
DX: I63.532 Cerebral infarction due to unspecified occlusion or stenosis of left posterior cerebral artery (principal); G81.94 Hemiplegia, unspecified affecting left nondominant side; R47.01 Aphasia; I67.82 Cerebral ischemia; I65.23 Occlusion and stenosis of bilateral carotid arteries; I10 Essential (primary) hypertension; R29.712 NIHSS score 12; E11.9 Type 2 diabetes mellitus without complications; R47.81 Slurred speech; I25.10 Atherosclerotic heart disease of native coronary artery without angina pectoris; J44.9 Chronic obstructive pulmonary disease, unspecified; F17.200 Nicotine dependence, unspecified, uncomplicated; E87.6 Hypokalemia; Z86.73 Personal history of transient ischemic attack (TIA), and cerebral infarction without residual deficits; Z91.14 Patient's other noncompliance with medication regimen; Z79.82 Long term (current) use of aspirin; R47.1 Dysarthria and anarthria
CPT/HCPCS: 12345; 36415; 36416; 51701; 70450; 70496; 70498; 80048; 80053; 80306; 81003; 82962; 83036; 83735; 84484; 85025; 85610; 85730; 92507; 92523; 92526; 92610; 93005; 93312; 93320; 93325; 96372; 96374; 96375; 96376; 97110; 97112; 97162; 97165; 97530; 97535; 99285; J1170; J1650; J1815 ×2; J2270; J2405; J2704; J2765; J3480; J3490; J7030; J7050; Q9967